=== PATIENT | female | born 1935 | race Caucasian/White ===

== ENCOUNTER 2025-05-16 00:21 | Inpatient (IN) ==
[2025-05-16] MEDS: SODIUM CHLORIDE 0.9% 1,000 ML IV SCH ×2 (01:02→11:29)
--- NOTE | 2025-05-16 01:02 | Emergency Department Note ---
Impression & Plan Pulmonary embolism Admission ED Provider Note HPI: History obtained from patient's son at the bedside. The patient is a 89-year-old female with reported history of dementia, presents to the emergency department with her son at the bedside over concern for generalized illness. Patient's son states that they actually just arrived back [place] this country from [facility]. The patient was in a hospital there secondary to illness, she is noted to have chronic wounds to her coccygeal area as well as her right heel. Patient's son states that the patient has been ill for the past several months. He states that he went to [place] to bring her back home because he did not think that she was getting appropriate care. He states they just [facility] and he was advised prior to bringing his mother back to this country that she would need to go immediately to a hospital upon their arrival back to the [facility]. He does state that the patient is DNR/DNI CODE STATUS. On arrival here to the ED the patient is nonverbal, he states that this is her baseline. At times she will say single words but she is not currently speaking. Patient is tachycardic on arrival in the 140s, blood pressures in the 70s systolic. Patient is saturating well on room air on arrival. ROS: - Per HPI Differential Diagnosis: Sepsis, pneumonia, pulmonary embolism, urinary tract infection, necrotizing infection of the soft tissue surrounding the sacrum, abscess, amongst other potential pathologies. *Outpatient medications and allergy history reviewed. PE: General: Frail appearing, listless HEENT: Normocephalic, trachea midline Eyes: Extraocular eye movement is intact, no scleral erythema Pulmonary: Clear to auscultation bilaterally, no wheezing Cardio: Tachycardic rate with regular rhythm GI: Abdomen is soft to palpation : No suprapubic tenderness MSK: No evidence of trauma or malformation of the extremities, no edema Skin: Ulceration is noted to the right heel, there is a large sacral ulcer with exposed portion of the sacrum posteriorly, no purulent drainage, left hip ulceration also noted without purulent drainage no evidence of rash Neuro: Patient is aphasic, nonambulatory at baseline Psychiatric: Not applicable INDEPENDENT INTERPRETATIONS: thermal molder: (As interpreted by myself): - An order was placed for continuous cardiac monitoring - Patient was noted to be in sinus rhythm with a rate of 135 EKG: (As interpreted by myself): Rate: 144 Rhythm: Sinus tachycardia Intervals: Within normal limits ST changes: No ST elevation Time: 43 Chest x-ray: (As interpreted by myself): No focal infiltrate Interventions provided in ED: - IV fluid bolus, IV vancomycin, IV cefepime, IV heparin bolus and drip Medical Decision Making: IV was established and lab work obtained, patient was placed on manager cardiac. Lab work shows no leukocytosis, hemoglobin is normal, platelet count is 630, CMP does not show any evidence of any critical findings, potassium is mildly elevated at 5.2, creatinine is normal, lactic acid is elevated at 3.9, troponin is mildly elevated at 14.6, procalcitonin is low. Urinalysis shows significant pyuria with 4+ bacteria with a turbid appearance. Suspect UTI. Salazar catheter was placed here. CT imaging of the head does not show any evidence of any acute intracranial process. CT imaging of the chest was obtained given the patient's presenting Tachycardia and hypotension, this does show evidence of a right-sided PE. Patient will be placed on a heparin bolus and drip, she was started on broad- spectrum antibiotics of her vital signs concerning for possible sepsis. She has chronic wounds over her sacrum, heel, and left hip. Overall the patient will require admission, she is noted to be DNR/DNI CODE STATUS according to her son. I think she would be a good candidate for palliative consult as well, she is aphasic, very frail, according to her son she has been deteriorating over the past 8 months at a prison facility in [place]. Patient's son expressed an agreement understanding for admission and the above. Blood pressure improved prior to admission to 121/97, heart rate was within normal limits. Patient's case was discussed with the on-call hospitalist, Dr. Almeida, and the patient was placed for admission in improved condition. Consultants/Discussions held with other healthcare providers: - Hospitalist, Dr. Almeida Disposition discussion held by myself with: - Patient's son at the bedside * CRITICAL CARE TIME: ( 49 ) minutes - Stabilization of patient with unstable vital signs on arrival including hypotension in the 70s systolic with tachycardia in the 140s, IV fluid resuscitation, initiation of broad-spectrum antibiotics, initiation of heparin drip for patient with right sided PE and elevated troponin, discussion with other physicians and arrangement of admission. Diagnosis: 1. Right-sided pulmonary embolism, acute 2. History of advanced dementia 3. Aphasia, chronic 4. Sacral ulcer, chronic 5. UTI, acute 6. Hyperkalemia, acute, mild 7. Lactic acidosis, acute Disposition: Admission Raymond Valdez DO Emergency Medicine Past Med/Surg History Problem List (Updated 05/16/25 @ 05:22 by Raymond Valdez DO) Pulmonary embolism (Acute) Severe sepsis Social History Smoking Status: Unknown if ever smoked Results & Data (ED) Vital Signs Vital Signs - 24 hr 05/16/25 00:30 05/16/25 00:50 05/16/25 00:52 Temperature 36.8 C Temperature Source Temporal Artery Scan Pulse Rate 134 H 143 H Pulse Rate [Apical] 140 H Pulse Rate from SpO2 Sensor Respiratory Rate Blood Pressure Blood Pressure Mean Pulse Oximetry 95 Oxygen Delivery Method Room Air Sepsis Recent Fever Within 48 Hours No Sepsis New/Unexplained Change in Mental Status No Sepsis Action Taken by Nursing No Action Required 05/16/25 00:54 05/16/25 00:54 05/16/25 00:54 Temperature Temperature Source Pulse Rate Pulse Rate [Apical] Pulse Rate from SpO2 Sensor Respiratory Rate Blood Pressure 79/59 L 79/59 L 79/59 L Blood Pressure Mean 66 66 66 Pulse Oximetry Oxygen Delivery Method Sepsis Recent Fever Within 48 Hours Sepsis New/Unexplained Change in Mental Status Sepsis Action Taken by Nursing 05/16/25 00:54 05/16/25 00:57 05/16/25 00:58 Temperature Temperature Source Pulse Rate 130 H 140 H Pulse Rate [Apical] Pulse Rate from SpO2 Sensor 138 H Respiratory Rate 17 26 H Blood Pressure 99/71 L Blood Pressure Mean 76 Pulse Oximetry 95 Oxygen Delivery Method Sepsis Recent Fever Within 48 Hours Sepsis New/Unexplained Change in Mental Status Sepsis Action Taken by Nursing 05/16/25 01:03 05/16/25 01:04 05/16/25 01:10 Temperature Temperature Source Pulse Rate 138 H Pulse Rate [Apical] Pulse Rate from SpO2 Sensor Respiratory Rate 26 H Blood Pressure 99/71 L Blood Pressure Mean 78 Pulse Oximetry 98 Oxygen Delivery Method Room Air Sepsis Recent Fever Within 48 Hours Sepsis New/Unexplained Change in Mental Status Sepsis Action Taken by Nursing 05/16/25 01:10 05/16/25 01:26 05/16/25 01:26 Temperature Temperature Source Pulse Rate Pulse Rate [Apical] Pulse Rate from SpO2 Sensor Respiratory Rate Blood Pressure 99/71 L 92/66 L 92/66 L Blood Pressure Mean 78 75 75 Pulse Oximetry Oxygen Delivery Method Sepsis Recent Fever Within 48 Hours Sepsis New/Unexplained Change in Mental Status Sepsis Action Taken by Nursing 05/16/25 01:27 05/16/25 01:30 05/16/25 01:30 Temperature Temperature Source Pulse Rate 112 H Pulse Rate [Apical] Pulse Rate from SpO2 Sensor 114 H Respiratory Rate 21 Blood Pressure 97/53 L 97/53 L Blood Pressure Mean 59 59 Pulse Oximetry 91 Oxygen Delivery Method Sepsis Recent Fever Within 48 Hours Sepsis New/Unexplained Change in Mental Status Sepsis Action Taken by Nursing 05/16/25 01:30 05/16/25 01:30 05/16/25 01:33 Temperature Temperature Source Pulse Rate 118 H Pulse Rate [Apical] Pulse Rate from SpO2 Sensor 123 H Respiratory Rate 20 Blood Pressure 97/53 L 97/53 L Blood Pressure Mean 59 59 Pulse Oximetry 91 Oxygen Delivery Method Sepsis Recent Fever Within 48 Hours Sepsis New/Unexplained Change in Mental Status Sepsis Action Taken by Nursing 05/16/25 01:45 05/16/25 01:50 05/16/25 02:00 Temperature Temperature Source Pulse Rate 110 H Pulse Rate [Apical] Pulse Rate from SpO2 Sensor 108 H Respiratory Rate 21 Blood Pressure 104/61 97/55 L Blood Pressure Mean 81 66 Pulse Oximetry 92 Oxygen Delivery Method Sepsis Recent Fever Within 48 Hours Sepsis New/Unexplained Change in Mental Status Sepsis Action Taken by Nursing 05/16/25 02:09 05/16/25 02:20 05/16/25 02:20 Temperature Temperature Source Pulse Rate 104 H Pulse Rate [Apical] Pulse Rate from SpO2 Sensor Respiratory Rate 16 Blood Pressure 108/75 108/75 Blood Pressure Mean 85 85 Pulse Oximetry Oxygen Delivery Method Sepsis Recent Fever Within 48 Hours Sepsis New/Unexplained Change in Mental Status Sepsis Action Taken by Nursing 05/16/25 02:21 05/16/25 02:30 05/16/25 02:30 Temperature 37.0 C Temperature Source Pulse Rate 98 H Pulse Rate [Apical] Pulse Rate from SpO2 Sensor Respiratory Rate 20 Blood Pressure 112/64 112/64 Blood Pressure Mean 71 71 Pulse Oximetry Oxygen Delivery Method Sepsis Recent Fever Within 48 Hours Sepsis New/Unexplained Change in Mental Status Sepsis Action Taken by Nursing 05/16/25 02:30 05/16/25 02:30 05/16/25 02:30 Temperature 36.9 C Temperature Source Pulse Rate 98 H Pulse Rate [Apical] Pulse Rate from SpO2 Sensor Respiratory Rate 24 Blood Pressure 112/64 112/64 Blood Pressure Mean 71 71 Pulse Oximetry Oxygen Delivery Method Sepsis Recent Fever Within 48 Hours Sepsis New/Unexplained Change in Mental Status Sepsis Action Taken by Nursing 05/16/25 02:33 05/16/25 02:40 05/16/25 03:00 Temperature 37.0 C Temperature Source Pulse Rate 96 H Pulse Rate [Apical] Pulse Rate from SpO2 Sensor Respiratory Rate 22 Blood Pressure 121/75 125/79 Blood Pressure Mean 81 101 Pulse Oximetry Oxygen Delivery Method Sepsis Recent Fever Within 48 Hours Sepsis New/Unexplained Change in Mental Status Sepsis Action Taken by Nursing 05/16/25 03:00 05/16/25 03:00 05/16/25 03:03 Temperature 37.0 C Temperature Source Pulse Rate 108 H Pulse Rate [Apical] Pulse Rate from SpO2 Sensor 94 H Respiratory Rate 21 Blood Pressure 125/79 125/79 Blood Pressure Mean 101 101 Pulse Oximetry 94 Oxygen Delivery Method Sepsis Recent Fever Within 48 Hours Sepsis New/Unexplained Change in Mental Status Sepsis Action Taken by Nursing 05/16/25 03:15 05/16/25 03:27 05/16/25 03:30 Temperature 37.1 C 37.1 C Temperature Source Pulse Rate 100 H 105 H Pulse Rate [Apical] Pulse Rate from SpO2 Sensor 101 H 103 H Respiratory Rate 20 16 Blood Pressure 131/89 Blood Pressure Mean 118 Pulse Oximetry 95 96 Oxygen Delivery Method Sepsis Recent Fever Within 48 Hours Sepsis New/Unexplained Change in Mental Status Sepsis Action Taken by Nursing 05/16/25 03:30 05/16/25 03:40 05/16/25 03:50 Temperature Temperature Source Pulse Rate Pulse Rate [Apical] Pulse Rate from SpO2 Sensor Respiratory Rate Blood Pressure 131/89 125/52 L 121/97 Blood Pressure Mean 118 72 108 Pulse Oximetry Oxygen Delivery Method Sepsis Recent Fever Within 48 Hours Sepsis New/Unexplained Change in Mental Status Sepsis Action Taken by Nursing 05/16/25 03:57 05/16/25 04:00 05/16/25 04:00 Temperature 37.0 C Temperature Source Pulse Rate 106 H Pulse Rate [Apical] Pulse Rate from SpO2 Sensor 105 H Respiratory Rate 30 H Blood Pressure Blood Pressure Mean Pulse Oximetry 95 Oxygen Delivery Method Room Air Room Air Sepsis Recent Fever Within 48 Hours Sepsis New/Unexplained Change in Mental Status Sepsis Action Taken by Nursing 05/16/25 04:52 Temperature Temperature Source Pulse Rate 98 H Pulse Rate [Apical] Pulse Rate from SpO2 Sensor Respiratory Rate Blood Pressure Blood Pressure Mean Pulse Oximetry Oxygen Delivery Method Sepsis Recent Fever Within 48 Hours Sepsis New/Unexplained Change in Mental Status Sepsis Action Taken by Nursing Laboratory Data 05/16/25 00:59 05/16/25 00:59 Lab Results 05/16/25 05/16/25 05/16/25 Range/Units 00:58 00:59 01:09 WBC 10.60 (4.8-10.8) K/ul RBC 4.68 (4.20-5.40) M/uL Hgb 12.0 (12.0-16.0) g/dl POC Hgb 13.6 (12.0-16.0) g/dl Hct 38.1 (37.0-47.0) % POC Hct 40 (37-47) % MCV 81.4 (80.0-100.0) fL MCH 25.6 (25.0-34.0) pg MCHC 31.5 L (32.0-36.0) g/dL RDW Std Deviation 53.5 H (36.4-46.3) fL RDW Coeff of Ollie 18.8 H (11.5-14.5) % Plt Count 630 H (130-400) K/uL MPV 9.4 (9.4-12.4) fL Immature Gran % (Auto) 0.6 % Neut % (Auto) 85.5 % Lymph % (Auto) 6.5 % Hamilton % (Auto) 7.0 % Eos % (Auto) 0.0 % Baso % (Auto) 0.4 % Neut # (Auto) 9.07 H (1.40-6.50) K/uL Lymph # (Auto) 0.69 L (1.20-3.40) K/uL Hamilton # (Auto) 0.74 H (0.11-0.59) K/uL Eos # (Auto) 0.00 (0.00-0.50) K/uL Baso # (Auto) 0.04 (0.00-0.20) K/uL Immature Gran # (Auto) 0.06 (0.01-0.20) K/uL PT 12.4 H (9.0-12.0) Seconds INR 1.2 H (0.9-1.1) POC Sodium 134 L (135-144) mmol/L Sodium 135 L (136-145) mmol/L POC Potassium 5.3 H (3.3-5.0) mmol/L Potassium 5.2 H (3.5-5.1) mmol/L POC Chloride 103 (101-112) mmol/L Chloride 100 (98-107) mmol/L Carbon Dioxide 22 (21-32) mmol/L POC Total CO2 20 L (24-31) mmol/L Anion Gap 13 H (3-11) POC Anion Gap 17.0 (16-25) mmol/L POC BUN 9 (7-18) mg/dl BUN 11 (6-23) mg/dl Creatinine 0.99 (0.6-1.2) mg/dl POC Creatinine 1.2 (0.6-1.3) mg/dl Est Cr Clr Drug Dosing 35.1 ml/min eGFR 54.84 BUN/Creatinine Ratio 11.1 (10-20) Glucose 160 H (70-99(Fasting)) mg/dl POC Glucose (other) 165 H (70-99) mg/dl Lactate 3.9 H* (0.4-2.0) mmol/L Calcium 8.6 (8.6-10.3) mg/dl POC Ioniz Calcium Devan 1.06 L (1.12-1.32) mmol/l Magnesium 1.9 (1.7-2.4) mg/dl Total Bilirubin 0.4 (0.2-1.0) mg/dl Direct Bilirubin 0.1 (0-0.2) mg/dl AST 22 (13-39) U/L ALT 14 (7-52) U/L Alkaline Phosphatase 138 H (34-104) U/L Troponin I High Sens 14.6 H (0-14) pg/ml Total Protein 6.8 (6.0-8.3) gm/dl Albumin 2.4 L (3.4-5.0) gm/dl Procalcitonin 0.16 (0-0.5) ng/ml Urine Color Urine Appearance (Clear) Urine pH Ur Specific [place] (1.000-1.030) Urine Protein Urine Glucose (UA) Urine Ketones Urine Blood Urine Nitrite Urine Bilirubin Urine Urobilinogen Ur Leukocyte Esterase Urine RBC (0-2) /hpf Urine WBC (0-5) /hpf Ur Epithelial Cells (0-2) /hpf Urine Bacteria (None Seen) Urine Comment 05/16/25 05/16/25 Range/Units 02:20 02:58 WBC (4.8-10.8) K/ul RBC (4.20-5.40) M/uL Hgb (12.0-16.0) g/dl POC Hgb (12.0-16.0) g/dl Hct (37.0-47.0) % POC Hct (37-47) % MCV (80.0-100.0) fL MCH (25.0-34.0) pg MCHC (32.0-36.0) g/dL RDW Std Deviation (36.4-46.3) fL RDW Coeff of Ollie (11.5-14.5) % Plt Count (130-400) K/uL MPV (9.4-12.4) fL Immature Gran % (Auto) % Neut % (Auto) % Lymph % (Auto) % Hamilton % (Auto) % Eos % (Auto) % Baso % (Auto) % Neut # (Auto) (1.40-6.50) K/uL Lymph # (Auto) (1.20-3.40) K/uL Hamilton # (Auto) (0.11-0.59) K/uL Eos # (Auto) (0.00-0.50) K/uL Baso # (Auto) (0.00-0.20) K/uL Immature Gran # (Auto) (0.01-0.20) K/uL PT (9.0-12.0) Seconds INR (0.9-1.1) POC Sodium (135-144) mmol/L Sodium (136-145) mmol/L POC Potassium (3.3-5.0) mmol/L Potassium (3.5-5.1) mmol/L POC Chloride (101-112) mmol/L Chloride (98-107) mmol/L Carbon Dioxide (21-32) mmol/L POC Total CO2 (24-31) mmol/L Anion Gap (3-11) POC Anion Gap (16-25) mmol/L POC BUN (7-18) mg/dl BUN (6-23) mg/dl Creatinine (0.6-1.2) mg/dl POC Creatinine (0.6-1.3) mg/dl Est Cr Clr Drug Dosing ml/min eGFR BUN/Creatinine Ratio (10-20) Glucose (70-99(Fasting)) mg/dl POC Glucose (other) (70-99) mg/dl Lactate 2.6 H* (0.4-2.0) mmol/L Calcium (8.6-10.3) mg/dl POC Ioniz Calcium Devan (1.12-1.32) mmol/l Magnesium (1.7-2.4) mg/dl Total Bilirubin (0.2-1.0) mg/dl Direct Bilirubin (0-0.2) mg/dl AST (13-39) U/L ALT (7-52) U/L Alkaline Phosphatase (34-104) U/L Troponin I High Sens (0-14) pg/ml Total Protein (6.0-8.3) gm/dl Albumin (3.4-5.0) gm/dl Procalcitonin (0-0.5) ng/ml Urine Color See Comment Urine Appearance Turbid A (Clear) Urine pH Not Reportable Ur Specific [place] 1.019 (1.000-1.030) Urine Protein Not Reportable Urine Glucose (UA) Not Reportable Urine Ketones Not Reportable Urine Blood Not Reportable Urine Nitrite Not Reportable Urine Bilirubin Not Reportable Urine Urobilinogen Not Reportable Ur Leukocyte Esterase Not Reportable Urine RBC 11-20 H (0-2) /hpf Urine WBC >50 H (0-5) /hpf Ur Epithelial Cells 6-10 H (0-2) /hpf Urine Bacteria 4+ H (None Seen) Urine Comment Administered Medications Heparin Sodium/Dextrose (Heparin 27132 Unit/500 Ml D5w) 25,000 units in 500 mls @ 20 mls/hr IV .Q24H [facility]; Protocol Stop: 06/15/25 02:59 Last Admin: 05/16/25 03:22 Dose: 1,000 units/hr, 20 mls/hr Documented By: MILI Co-signed By: TJBeverley Discontinued Medications Heparin Sodium (Porcine) (Heparin Sod (Porcine) 1000 Unit/Ml) 1 units IV NOW ONE Stop: 05/16/25 03:01 Last Admin: 05/16/25 03:22 Dose: 5,000 units Documented By: MILI Co-signed By: GOMEZ Sodium Chloride (Nss) 1,000 mls @ 999 mls/hr IV .Q1H1M ANALILIA Stop: 05/16/25 03:00 Last Admin: 05/16/25 03:06 Dose: 999 mls/hr Documented By: Infusion: 05/16/25 02:52 Dose: Infused Documented By: Admin: 05/16/25 01:02 Dose: 999 mls/hr Documented By: REGAN Cefepime HCl (Maxipime 2000mg) 2,000 mg in 20 mls @ 5 mls/min IV NOW STA; Protocol Stop: 05/16/25 01:03 Last Admin: 05/16/25 01:03 Dose: 5 mls/min Documented By: REGAN Vancomycin HCl 1,250 mg/ (Sodium Chloride) 525 mls @ 200 mls/hr IV NOW ONE Stop: 05/16/25 04:58 Last Admin: 05/16/25 03:51 Dose: 200 mls/hr Documented By: GOMEZ Ioversol (Optiray 320 125ml) 118 ml IV ONCE ONE Stop: 05/16/25 01:19 Last Admin: 05/16/25 01:18 Dose: 118 ml Documented By: BOOGIE Miscellaneous Information (Patient's Allergy Info Needs Entered) 1 each N/A ONE STA Stop: 05/16/25 02:59 Last Admin: 05/16/25 03:51 Dose: Not Given Documented By: GOMEZ Imaging Data Radiologist's Impression: Chest X-Ray 05/16/25 00:59 EXAM: XR chest 1V portable CLINICAL HISTORY: Sepsis TECHNIQUE: An X-ray image of the chest was obtained in the AP projection. COMPARISON: CT angiography of the chest, dated 05/16/2025. FINDINGS: The patient is rotated. Pulmonary Parenchyma: Bilateral reticular shadowing is suggestive of fibrosis. Atelectatic bands are noted in the right middle and lower lung zones. The lungs are clear bilaterally. There is no evidence of consolidation, collapse, or focal opacities. No pulmonary nodules are identified. There is blunting of the right costophrenic angle, which is suggestive of mild pleural effusion. Heart and Mediastinum: The heart size and shape are normal. There is a dilated and unfolded aorta. There is an elevated right hemidiaphragm. Bony Thorax: Degenerative changes are present in the glenohumeral joints. Decreased bone density is noted. Soft Tissues: The soft tissues overlying the chest wall are unremarkable. IMPRESSION: 1. Bilateral reticular shadowing is suggestive of fibrosis, and is stable. 2. Atelectatic bands in the right middle and lower lung zones are stable. 3. Blunting of the right costophrenic angle is suggestive of mild pleural effusion, and is stable. 4. There are no significant interval changes from the previous study. Electronically signed by John Nesbitt 05-16-2025 03:23 AM Chest CTA 05/16/25 01:02 EXAM: CT angio chest PE protocol CLINICAL HISTORY: PE TECHNIQUE: Contiguous axial images were obtained from the neck base through the upper abdomen following intravenous administration of iodinated contrast material. Angiographic images were processed, 3D MIP images were acquired for interpretation. If IV contrast material had not been administered, the likelihood of detecting abnormalities relevant to the patient's condition would have been substantially decreased. Coronal and sagittal 3-D MIPs were likewise performed and indicated to increase the sensitivity of detectin diffuse clinically relevant pathology. CT scan was performed according to ALARA (as low as reasonably achievable). COMPARISON: None. FINDINGS: Mild right pleural effusion with basal subsegmental collapse of right lower lobes are seen. Evidence of intraluminal hypodense filling defect is noted involving right upper lobar artery and right middle lobar artery up to segmental branches- suggestive of pulmonary embolism. Multiple fibroatelectatic bands are noted in both lungs. Ill-defined fibrotic scar is noted involving anterior segment of left upper lobe. The central airways are patent. The heart, aorta, and pulmonary arteries are of normal size and configuration. There are coronary artery and aortic atherosclerotic calcifications. No pericardial effusion is identified. The thyroid shows multiple tiny nodules-advised ultrasound correlation. No mediastinal, hilar, or axillary lymphadenopathy is noted. No suspicious lytic or sclerotic osseous lesions are identified. IMPRESSION: 1. Evidence of intraluminal hypodense filling defect is noted involving right upper lobar artery and right middle lobar artery up to segmental branches- suggestive of pulmonary embolism. 2. Mild right pleural effusion with basal subsegmental collapse of right lower lobes are seen. 3. Multiple fibroatelectatic bands are noted in both lungs. 4. Ill-defined fibrotic scar is noted involving anterior segment of left upper lobe. Electronically signed by Kailash Lopez 05-16-2025 02:[address] 05/16/25 01:02 EXAM: CT head/brain wo con CLINICAL HISTORY: AMS. TECHNIQUE: Axial non-contrast CT scan of the brain was performed from the skull base to the high parietal region. One of the following dose reduction techniques was utilized for this exam: Automated exposure control, adjustment of the mA and/or kV according to patient size, use of iterative reconstruction. COMPARISON: None. FINDINGS: Brain Parenchyma: There are ill-defined iso-to hypodense areas in the subcortical and periventricular white matter bilaterally, representing chronic microvascular ischemic changes. The rest of the visualized brain parenchyma shows a normal appearance. No intracerebral or extra axial hematoma. Ventricular System: Prominent ventricular system. Subarachnoid Spaces: The cortical sulci and basal cisterns are prominent, consistent with senile changes. Cerebellum and Brainstem: No masses, lesions, or areas of abnormal density. Orbits: Normal appearance of the globes, optic nerves, and extraocular muscles. No evidence of orbital masses or abnormal density. Visualised Paranasal sinuses: Clear paranasal sinuses. Right-sided nasal septal deviation. Mastoid Air Cells: Clear mastoid air cells. Skull and soft tissue: Hyperpneumatization of bilateral temporal bones noted. IMPRESSION: 1. No acute abnormality detected in plain CT head. 2. Chronic microvascular ischemic changes and senile cortical atrophy. Electronically signed by John Nesbitt 05-16-2025 02:38 AM Discharge Plan Visit Data Chief Complaint: Infection, Wound Stated Complaint: SCAR? INFECTION? ED Provider: Raymond Valdez Discharge Problem: Pulmonary embolism Patient Disposition: Admitted As Inpatient Condition: Serious Forms Stand Alone Forms: [facility] Referrals Referrals: PCP,NO [Primary Care Provider] -
[2025-05-16] MEDS: CEFEPIME 2000MG 2,000 MG/20 ML SYR IV STA (01:03)
[2025-05-16] MEDS: OPTIRAY 320 125ml IV ONE (01:18)
[2025-05-16 01:23] LABS: Hematocrit (blood only) 38.1 % (37.0-47.0); Hemoglobin 12.0 g/dl (12.0-16.0); Immature Granulocytes # (auto) 0.06 K/uL (0.01-0.20); Immature Granulocytes % (auto) 0.6 %; Mean Corpuscular Hemoglobin 25.6 pg (25.0-34.0); Mean Corpuscular Volume 81.4 fL (80.0-100.0); Platelet Count 630 K/uL (130-400); RDW Standard Deviation 53.5 fL (36.4-46.3); Red Blood Count 4.68 M/uL (4.20-5.40); White Blood Count 10.60 K/ul (4.8-10.8)
[2025-05-16 01:40] LABS: Alanine Aminotransferase 14.0 U/L (7-52); Albumin Level 2.4 gm/dl (3.4-5.0); Alkaline Phosphatase 138.0 U/L (34-104); Anion Gap 13.0 (3-11); Bilirubin,Total 0.4 mg/dl (0.2-1.0); Blood Urea Nitrogen 11.0 mg/dl (6-23); Calcium 8.6 mg/dl (8.6-10.3); Carbon Dioxide 22.0 mmol/L (21-32); Chloride 100.0 mmol/L (98-107); Creatinine Clr Calc Pharmacy 35.1 ml/min; Glucose 160.0 mg/dl (70-99(Fasting)); Magnesium 1.9 mg/dl (1.7-2.4); Potassium 5.2 mmol/L (3.5-5.1); Sodium 135.0 mmol/L (136-145); Total Protein 6.8 gm/dl (6.0-8.3)
[2025-05-16 01:58] LABS: INR 1.2 (0.9-1.1); Prothrombin Time 12.4 Seconds (9.0-12.0)
[2025-05-16] MEDS ORDERED: VANCOMYCIN CONSULT ACTIVE PRN (02:21)
--- NOTE | 2025-05-16 02:38 | CT Scan Report ---
EXAM: CT head/brain wo con CLINICAL HISTORY: AMS. TECHNIQUE: Axial non-contrast CT scan of the brain was performed from the skull base to the high parietal region. One of the following dose reduction techniques was utilized for this exam: Automated exposure control, adjustment of the mA and/or kV according to patient size, use of iterative reconstruction. COMPARISON: None. FINDINGS: Brain Parenchyma: There are ill-defined iso-to hypodense areas in the subcortical and periventricular white matter bilaterally, representing chronic microvascular ischemic changes. The rest of the visualized brain parenchyma shows a normal appearance. No intracerebral or extra axial hematoma. Ventricular System: Prominent ventricular system. Subarachnoid Spaces: The cortical sulci and basal cisterns are prominent, consistent with senile changes. Cerebellum and Brainstem: No masses, lesions, or areas of abnormal density. Orbits: Normal appearance of the globes, optic nerves, and extraocular muscles. No evidence of orbital masses or abnormal density. Visualised Paranasal sinuses: Clear paranasal sinuses. Right-sided nasal septal deviation. Mastoid Air Cells: Clear mastoid air cells. Skull and soft tissue: Hyperpneumatization of bilateral temporal bones noted. IMPRESSION: 1. No acute abnormality detected in plain CT head. 2. Chronic microvascular ischemic changes and senile cortical atrophy. Electronically signed by John Nesbitt 05-16-2025 02:38 AM
--- NOTE | 2025-05-16 02:38 | CT Scan Report ---
EXAM: CT angio chest PE protocol CLINICAL HISTORY: PE TECHNIQUE: Contiguous axial images were obtained from the neck base through the upper abdomen following intravenous administration of iodinated contrast material. Angiographic images were processed, 3D MIP images were acquired for interpretation. If IV contrast material had not been administered, the likelihood of detecting abnormalities relevant to the patient's condition would have been substantially decreased. Coronal and sagittal 3-D MIPs were likewise performed and indicated to increase the sensitivity of detectin diffuse clinically relevant pathology. CT scan was performed according to ALARA (as low as reasonably achievable). COMPARISON: None. FINDINGS: Mild right pleural effusion with basal subsegmental collapse of right lower lobes are seen. Evidence of intraluminal hypodense filling defect is noted involving right upper lobar artery and right middle lobar artery up to segmental branches- suggestive of pulmonary embolism. Multiple fibroatelectatic bands are noted in both lungs. Ill-defined fibrotic scar is noted involving anterior segment of left upper lobe. The central airways are patent. The heart, aorta, and pulmonary arteries are of normal size and configuration. There are coronary artery and aortic atherosclerotic calcifications. No pericardial effusion is identified. The thyroid shows multiple tiny nodules-advised ultrasound correlation. No mediastinal, hilar, or axillary lymphadenopathy is noted. No suspicious lytic or sclerotic osseous lesions are identified. IMPRESSION: 1. Evidence of intraluminal hypodense filling defect is noted involving right upper lobar artery and right middle lobar artery up to segmental branches- suggestive of pulmonary embolism. 2. Mild right pleural effusion with basal subsegmental collapse of right lower lobes are seen. 3. Multiple fibroatelectatic bands are noted in both lungs. 4. Ill-defined fibrotic scar is noted involving anterior segment of left upper lobe. Electronically signed by Kailash Lopez 05-16-2025 02:38 AM
[2025-05-16] MEDS ORDERED: Heparin IV Adult Wt-Based Standard w/ INITIAL Bolus Protocol IV STA (02:44)
[2025-05-16 02:58] LABS: Appearance Urine Turbid (Clear)
[2025-05-16] MEDS: HEPARIN SOD (PORCINE) 1000 UNIT/ML IV ONE (03:22)
[2025-05-16] MEDS: HEPARIN 25000 UNIT/500 ML D5W 25,000 UNITS/500 ML BAG IV SCH (03:22)
--- NOTE | 2025-05-16 03:23 | XRay Report ---
EXAM: XR chest 1V portable CLINICAL HISTORY: Sepsis TECHNIQUE: An X-ray image of the chest was obtained in the AP projection. COMPARISON: CT angiography of the chest, dated 05/16/2025. FINDINGS: The patient is rotated. Pulmonary Parenchyma: Bilateral reticular shadowing is suggestive of fibrosis. Atelectatic bands are noted in the right middle and lower lung zones. The lungs are clear bilaterally. There is no evidence of consolidation, collapse, or focal opacities. No pulmonary nodules are identified. There is blunting of the right costophrenic angle, which is suggestive of mild pleural effusion. Heart and Mediastinum: The heart size and shape are normal. There is a dilated and unfolded aorta. There is an elevated right hemidiaphragm. Bony Thorax: Degenerative changes are present in the glenohumeral joints. Decreased bone density is noted. Soft Tissues: The soft tissues overlying the chest wall are unremarkable. IMPRESSION: 1. Bilateral reticular shadowing is suggestive of fibrosis, and is stable. 2. Atelectatic bands in the right middle and lower lung zones are stable. 3. Blunting of the right costophrenic angle is suggestive of mild pleural effusion, and is stable. 4. There are no significant interval changes from the previous study. Electronically signed by John Nesbitt 05-16-2025 03:23 AM
[2025-05-16] MEDS: VANCOMYCIN HCL 1,250 MG in SODIUM CHLORIDE 0.9% 500 ML IV ONE (03:51)
--- NOTE | 2025-05-16 04:11 | History & Physical Report ---
Date of Service May 16, 2025 Assessment & Plan (1) Severe sepsis: Plan: 89-year-old female with past medical history significant for hypertension, hyperlipidemia and no longer on medication, history of dementia and agitation was brought in by son from [facility] today and found to be in severe sepsis. As per son they went to [place] last year to visit but the patient got sick and got admitted to the hospital. She was too weak to bring h er back. From the hospital she went to jail. Seems as per son she was in and out of the hospitals because of the infections. As per son she was treated for wound infections and completed antibiotic course about a week ago. And a week prior to that she completed antibiotic course for UTI. As per son she was on lisinopril 5 mg daily prior to going to the [place] but in [place] she is getting a different medication for her blood pressure. And also she was getting medication for dementia and she was getting medication for agitation to help her calm down and sleep in the night. Patient developed deep ulcers in the right ankle, left thigh and sacral region and son found out about this deep wounds about a week ago and then he decided to bring her back to the [facility]. He was told to take the patient to hospital as soon they come back to [facility]. When she came here she was tachycardic and hypotensive. With the fluid bolus and antibiotics her vitals improved currently. As per son she can speak few Swedish words. But for last 2 weeks she is not speaking much. Sometimes she remembers her name and sometimes she remembers her son's name. She is nonambulatory. And last couple of weeks she was spoonfed blended diet as per son. As per son no nausea or vomiting. She was having some diarrhea lately. Son thinks patient might be in pain but because of her dementia she is not registering the pain. Currently patient is not talking. Severe sepsis More confused than usual Acute UTI Pressure ulcers CT head okay On presentation heart rate in 140s and systolic blood pressure in 70s With fluids blood pressure improved to 120s and heart rate in the low 100s. Initial lactic acid 3.9 and repeat is 2.6 Got IV Vanco and cefepime Will continue with Vanco and Zosyn Will follow cultures Continue IV fluids at 125 mL/h Close monitor hemodynamics Acute pulmonary embolism CTA chest shows right upper and middle lobar artery pulmonary embolism On IV heparin Mild elevation troponin Mostly demand ischemia Will follow serial enzymes and echo Hyperkalemia Potassium 5.2 Will follow repeat labs in a.m. Pressure ulcers Stage IV sacral, right ankle and left thigh wounds Antibiotics as above Wound care consult Dementia Will monitor for agitation Nutrition Will keep her n.p.o. for now Speech consult Dietitian consult when stable History of hypertension was on lisinopril 5 mg per son Currently in sepsis Will monitor History of hyperlipidemia No longer on statin as per son DVT prophylaxis IV heparin Disposition Telemetry CODE STATUS DNR/DNI as per my discussion with son Son wants patient to be placed History of Present Illness Chief Complaint: Severe sepsis Primary Care Provider: NO PCP 89-year-old female with past medical history significant for hypertension, hyperlipidemia and no longer on medication, history of dementia and agitation was brought in by son from [facility] today and found to be in severe sepsis. As per son they went to [place] last year to visit but the patient got sick and got admitted to the hospital. She was too weak to bring her back. From the hospital she went to jail. Seems as per son she was in and out of the hospitals because of the infections. As per son she was treated for wound infections and completed antibiotic course about a week ago. And a week prior to that she completed antibiotic course for UTI. As per son she was on lisinopril 5 mg daily prior to going to the [place] but in [place] she is getting a different medication for her blood pressure. And also she was getting medication for dementia and she was getting medication for agitation to help her calm down and sleep in the night. Patient developed deep ulcers in the right ankle, left thigh and sacral region and son found out about this deep wounds about a week ago and then he decided to bring her back to the [facility]. He was told to take the patient to hospital as soon they come back to [facility]. When she came here she was tachycardic and hypotensive. With the fluid bolus and antibiotics her vitals improved currently. As per son she can speak few Swedish words. But for last 2 weeks she is not speaking much. Sometimes she remembers her name and sometimes she remembers her son's name. She is nonambulatory. And last couple of weeks she was spoonfed blended diet as per son. As per son no nausea or vomiting. She was having some diarrhea lately. Son thinks patient might be in pain but because of her dementia she is not registering the pain. Currently patient is not talking. Past medical history as mentioned above Past surgical history hysterectomy as per son. Social history. No smoking. No alcohol use. Family history noncontributory Past Med/Surg History Problem List (Updated 05/16/25 @ 05:22 by Raymond Valdez DO) Pulmonary embolism (Acute) Severe sepsis Social History Smoking Status: Unknown if ever smoked Review of Systems Review of Systems: Unobtainable due to cognitive status Physical Exam Physical Exam: General- Not in acute distress. Head- atraumatic Eyes- PERRL. Lungs- clear to auscultation no wheezing or crackles Heart- regular rhythm; Tachycardia no murmur, no gallop. Abdomen- normal bowel sounds, soft, nontender, no distension. Extremities- no pretibial edema, no erythema seen. Neuro- staring, not speaking, PERRL,not obeying commands. Skin- stage 4 ulcers in sacral region , left thigh and right ankle region Results & Data Results & Data Vital Signs (Past 12 Hours) Vital Signs Temp Pulse Pulse Resp BP Pulse Ox O2 Del Method 05/16/25 04:00 Room Air 05/16/25 04:00 Room Air 05/16/25 03:57 37.0 C 106 H 30 H 95 05/16/25 03:50 121/97 05/16/25 03:40 125/52 L 05/16/25 03:30 131/89 05/16/25 03:30 131/89 05/16/25 03:27 37.1 C 105 H 16 96 05/16/25 03:15 37.1 C 100 H 20 95 05/16/25 03:03 37.0 C 108 H 21 94 05/16/25 03:00 125/79 05/16/25 03:00 125/79 05/16/25 03:00 125/79 05/16/25 02:40 121/75 05/16/25 02:33 37.0 C 96 H 22 05/16/25 02:30 36.9 C 98 H 24 05/16/25 02:30 112/64 05/16/25 02:30 112/64 05/16/25 02:30 112/64 05/16/25 02:30 112/64 05/16/25 02:21 37.0 C 98 H 20 05/16/25 02:20 108/75 05/16/25 02:20 108/75 05/16/25 02:09 104 H 16 05/16/25 02:00 97/55 L 05/16/25 01:50 104/61 05/16/25 01:45 110 H 21 92 05/16/25 01:33 118 H 20 91 05/16/25 01:30 97/53 L 05/16/25 01:30 97/53 L 05/16/25 01:30 97/53 L 05/16/25 01:30 97/53 L 05/16/25 01:27 112 H 21 91 05/16/25 01:26 92/66 L 05/16/25 01:26 92/66 L 05/16/25 01:10 99/71 L 05/16/25 01:10 99/71 L 05/16/25 01:04 98 Room Air 05/16/25 01:03 138 H 26 H 05/16/25 00:58 99/71 L 05/16/25 00:57 140 H 26 H 95 05/16/25 00:54 130 H 17 05/16/25 00:54 79/59 L 05/16/25 00:54 79/59 L 05/16/25 00:54 79/59 L 05/16/25 00:52 143 H 05/16/25 00:50 140 H 05/16/25 00:30 36.8 C 134 H 95 Room Air Diagnostic Findings Laboratory Results WBC 10.60 K/ul (4.8-10.8) 05/16/25 00:59 RBC 4.68 M/uL (4.20-5.40) 05/16/25 00:59 Hgb 12.0 g/dl (12.0-16.0) 05/16/25 00:59 POC Hgb 13.6 g/dl (12.0-16.0) 05/16/25 00:58 Hct 38.1 % (37.0-47.0) 05/16/25 00:59 POC Hct 40 % (37-47) 05/16/25 00:58 MCV 81.4 fL (80.0-100.0) 05/16/25 00:59 MCH 25.6 pg (25.0-34.0) 05/16/25 00:59 MCHC 31.5 g/dL (32.0-36.0) L 05/16/25 00:59 RDW Std Deviation 53.5 fL (36.4-46.3) H 05/16/25 00:59 RDW Coeff of Ollie 18.8 % (11.5-14.5) H 05/16/25 00:59 Plt Count 630 K/uL (130-400) H 05/16/25 00:59 MPV 9.4 fL (9.4-12.4) 05/16/25 00:59 Immature Gran % (Auto) 0.6 % 05/16/25 00:59 Neut % (Auto) 85.5 % 05/16/25 00:59 Lymph % (Auto) 6.5 % 05/16/25 00:59 [place] % (Auto) 7.0 % 05/16/25 00:59 Eos % (Auto) 0.0 % 05/16/25 00:59 Baso % (Auto) 0.4 % 05/16/25 00:59 Neut # (Auto) 9.07 K/uL (1.40-6.50) H 05/16/25 00:59 Lymph # (Auto) 0.69 K/uL (1.20-3.40) L 05/16/25 00:59 [place] # (Auto) 0.74 K/uL (0.11-0.59) H 05/16/25 00:59 Eos # (Auto) 0.00 K/uL (0.00-0.50) 05/16/25 00:59 Baso # (Auto) 0.04 K/uL (0.00-0.20) 05/16/25 00:59 Immature Gran # (Auto) 0.06 K/uL (0.01-0.20) 05/16/25 00:59 PT 12.4 Seconds (9.0-12.0) H 05/16/25 00:59 INR 1.2 (0.9-1.1) H 05/16/25 00:59 POC Sodium 134 mmol/L (135-144) L 05/16/25 00:58 Sodium 135 mmol/L (136-145) L 05/16/25 00:59 POC Potassium 5.3 mmol/L (3.3-5.0) H 05/16/25 00:58 Potassium 5.2 mmol/L (3.5-5.1) H 05/16/25 00:59 POC Chloride 103 mmol/L (101-112) 05/16/25 00:58 Chloride 100 mmol/L (98-107) 05/16/25 00:59 Carbon Dioxide 22 mmol/L (21-32) 05/16/25 00:59 POC Total CO2 20 mmol/L (24-31) L 05/16/25 00:58 Anion Gap 13 (3-11) H 05/16/25 00:59 POC Anion Gap 17.0 mmol/L (16-25) 05/16/25 00:58 POC BUN 9 mg/dl (7-18) 05/16/25 00:58 BUN 11 mg/dl (6-23) 05/16/25 00:59 Creatinine 0.99 mg/dl (0.6-1.2) 05/16/25 00:59 POC Creatinine 1.2 mg/dl (0.6-1.3) 05/16/25 00:58 Est Cr Clr Drug Dosing 35.1 ml/min 05/16/25 00:59 eGFR 54.84 05/16/25 00:59 BUN/Creatinine Ratio 11.1 (10-20) 05/16/25 00:59 Glucose 160 mg/dl (70-99(Fasting)) H 05/16/25 00:59 POC Glucose (other) 165 mg/dl (70-99) H 05/16/25 00:58 Lactate 2.6 mmol/L (0.4-2.0) H* 05/16/25 02:58 Calcium 8.6 mg/dl (8.6-10.3) 05/16/25 00:59 POC Ioniz Calcium Devan 1.06 mmol/l (1.12-1.32) L 05/16/25 00:58 Magnesium 1.9 mg/dl (1.7-2.4) 05/16/25 00:59 Total Bilirubin 0.4 mg/dl (0.2-1.0) 05/16/25 00:59 Direct Bilirubin 0.1 mg/dl (0-0.2) 05/16/25 00:59 AST 22 U/L (13-39) 05/16/25 00:59 ALT 14 U/L (7-52) 05/16/25 00:59 Alkaline Phosphatase 138 U/L (34-104) H 05/16/25 00:59 Troponin I High Sens 14.6 pg/ml (0-14) H 05/16/25 00:59 Total Protein 6.8 gm/dl (6.0-8.3) 05/16/25 00:59 Albumin 2.4 gm/dl (3.4-5.0) L 05/16/25 00:59 Procalcitonin 0.16 ng/ml (0-0.5) 05/16/25 00:59 Urine Color See Comment 05/16/25 02:20 Urine Appearance Turbid (Clear) A 05/16/25 02:20 Urine pH Not Reportable 05/16/25 02:20 Ur Specific Walker 1.019 (1.000-1.030) 05/16/25 02:20 Urine Protein Not Reportable 05/16/25 02:20 Urine Glucose (UA) Not Reportable 05/16/25 02:20 Urine Ketones Not Reportable 05/16/25 02:20 Urine Blood Not Reportable 05/16/25 02:20 Urine Nitrite Not Reportable 05/16/25 02:20 Urine Bilirubin Not Reportable 05/16/25 02:20 Urine Urobilinogen Not Reportable 05/16/25 02:20 Ur Leukocyte Esterase Not Reportable 05/16/25 02:20 Urine RBC 11-20 /hpf (0-2) H 05/16/25 02:20 Urine WBC >50 /hpf (0-5) H 05/16/25 02:20 Ur Epithelial Cells 6-10 /hpf (0-2) H 05/16/25 02:20 Urine Bacteria 4+ (None Seen) H 05/16/25 02:20 Urine Comment 05/16/25 02:20 Impressions Chest X-Ray 05/16/25 00:59 EXAM: XR chest 1V portable CLINICAL HISTORY: Sepsis TECHNIQUE: An X-ray image of the chest was obtained in the AP projection. COMPARISON: CT angiography of the chest, dated 05/16/2025. FINDINGS: The patient is rotated. Pulmonary Parenchyma: Bilateral reticular shadowing is suggestive of fibrosis. Atelectatic bands are noted in the right middle and lower lung zones. The lungs are clear bilaterally. There is no evidence of consolidation, collapse, or focal opacities. No pulmonary nodules are identified. There is blunting of the right costophrenic angle, which is suggestive of mild pleural effusion. Heart and Mediastinum: The heart size and shape are normal. There is a dilated and unfolded aorta. There is an elevated right hemidiaphragm. Bony Thorax: Degenerative changes are present in the glenohumeral joints. Decreased bone density is noted. Soft Tissues: The soft tissues overlying the chest wall are unremarkable. IMPRESSION: 1. Bilateral reticular shadowing is suggestive of fibrosis, and is stable. 2. Atelectatic bands in the right middle and lower lung zones are stable. 3. Blunting of the right costophrenic angle is suggestive of mild pleural effusion, and is stable. 4. There are no significant interval changes from the previous study. Electronically signed by John Nesbitt 05-16-2025 03:23 AM Chest CTA 05/16/25 01:02 EXAM: CT angio chest PE protocol CLINICAL HISTORY: PE TECHNIQUE: Contiguous axial images were obtained from the neck base through the upper abdomen following intravenous administration of iodinated contrast material. Angiographic images were processed, 3D MIP images were acquired for interpretation. If IV contrast material had not been administered, the likelihood of detecting abnormalities relevant to the patient's condition would have been substantially decreased. Coronal and sagittal 3-D MIPs were likewise performed and indicated to increase the sensitivity of detectin diffuse clinically relevant pathology. CT scan was performed according to ALARA (as low as reasonably achievable). COMPARISON: None. FINDINGS: Mild right pleural effusion with basal subsegmental collapse of right lower lobes are seen. Evidence of intraluminal hypodense filling defect is noted involving right upper lobar artery and right middle lobar artery up to segmental branches- suggestive of pulmonary embolism. Multiple fibroatelectatic bands are noted in both lungs. Ill-defined fibrotic scar is noted involving anterior segment of left upper lobe. The central airways are patent. The heart, aorta, and pulmonary arteries are of normal size and configuration. There are coronary artery and aortic atherosclerotic calcifications. No pericardial effusion is identified. The thyroid shows multiple tiny nodules-advised ultrasound correlation. No mediastinal, hilar, or axillary lymphadenopathy is noted. No suspicious lytic or sclerotic osseous lesions are identified. IMPRESSION: 1. Evidence of intraluminal hypodense filling defect is noted involving right upper lobar artery and right middle lobar artery up to segmental branches- suggestive of pulmonary embolism. 2. Mild right pleural effusion with basal subsegmental collapse of right lower lobes are seen. 3. Multiple fibroatelectatic bands are noted in both lungs. 4. Ill-defined fibrotic scar is noted involving anterior segment of left upper lobe. Electronically signed by Kailash Lopez 05-16-2025 02:[address] 05/16/25 01:02 EXAM: CT head/brain wo con CLINICAL HISTORY: AMS. TECHNIQUE: Axial non-contrast CT scan of the brain was performed from the skull base to the high parietal region. One of the following dose reduction techniques was utilized for this exam: Automated exposure control, adjustment of the mA and/or kV according to patient size, use of iterative reconstruction. COMPARISON: None. FINDINGS: Brain Parenchyma: There are ill-defined iso-to hypodense areas in the subcortical and periventricular white matter bilaterally, representing chronic microvascular ischemic changes. The rest of the visualized brain parenchyma shows a normal appearance. No intracerebral or extra axial hematoma. Ventricular System: Prominent ventricular system. Subarachnoid Spaces: The cortical sulci and basal cisterns are prominent, consistent with senile changes. Cerebellum and Brainstem: No masses, lesions, or areas of abnormal density. Orbits: Normal appearance of the globes, optic nerves, and extraocular muscles. No evidence of orbital masses or abnormal density. Visualised Paranasal sinuses: Clear paranasal sinuses. Right-sided nasal septal deviation. Mastoid Air Cells: Clear mastoid air cells. Skull and soft tissue: Hyperpneumatization of bilateral temporal bones noted. IMPRESSION: 1. No acute abnormality detected in plain CT head. 2. Chronic microvascular ischemic changes and senile cortical atrophy. Electronically signed by John Nesbitt 05-16-2025 02:38 AM ECG Additional Comments: ECG undetermined rhythm rate 144. Q waves in inferior leads. QTc 436 Code Status & VTE Plan VTE Prophylaxis Plan VTE Prophylaxis will be ordered: Yes
[2025-05-16 05:23] LABS: Chlamydia pneumoniae PCR Not Detected (NotDetected); Coronavirus 229E PCR Not Detected (NotDetected); Coronavirus CoV-2 (COVID19)PCR Not Detected (NotDetected); Coronavirus HKU1 PCR Not Detected (NotDetected); Coronavirus NL63 PCR Not Detected (NotDetected); Coronavirus OC43PCR Not Detected (NotDetected); Human Metapneumovirus PCR Not Detected (NotDetected); Parainfluenza Virus 1 PCR Not Detected (NotDetected); Parainfluenza Virus 2 PCR Not Detected (NotDetected); Parainfluenza Virus 3 PCR Not Detected (NotDetected); Parainfluenza Virus 4 PCR Not Detected (NotDetected); Respiratory Syncytial VirusPCR Not Detected (NotDetected); Rhinovirus/Enterovirus PCR Not Detected (NotDetected)
[2025-05-16 08:16] LABS: Hematocrit (blood only) 30.8 % (37.0-47.0); Hemoglobin 9.5 g/dl (12.0-16.0); Immature Granulocytes # (auto) 0.07 K/uL (0.01-0.20); Immature Granulocytes % (auto) 0.7 %; Mean Corpuscular Hemoglobin 25.7 pg (25.0-34.0); Mean Corpuscular Volume 83.5 fL (80.0-100.0); Platelet Count 440 K/uL (130-400); RDW Standard Deviation 54.4 fL (36.4-46.3); Red Blood Count 3.69 M/uL (4.20-5.40); White Blood Count 10.26 K/ul (4.8-10.8)
[2025-05-16 08:45] LABS: Anion Gap 5.0 (3-11); Blood Urea Nitrogen 9.0 mg/dl (6-23); Calcium 7.1 mg/dl (8.6-10.3); Carbon Dioxide 25.0 mmol/L (21-32); Chloride 108.0 mmol/L (98-107); Creatinine Clr Calc Pharmacy 51.8 ml/min; Glucose 124.0 mg/dl (70-99(Fasting)); Magnesium 1.7 mg/dl (1.7-2.4); Potassium 4.2 mmol/L (3.5-5.1); Sodium 138.0 mmol/L (136-145)
[2025-05-16 08:52] LABS: Thyroid Stimulating Hormone 12.747 uIu/ml (0.300-4.500)
[2025-05-16 09:28] LABS: T4 Free Thyroxine 1.01 ng/dl (0.61-1.60)
--- NOTE | 2025-05-16 10:19 | CT Scan Report ---
CT head/brain wo con CLINICAL HISTORY: unresponsive, worse than prior, on heparin. TECHNIQUE: Multiple axial CT images of the head were obtained without contrast. A dose lowering tech nique was utilized adhering to the principles of ALARA. CT DOSE: 625.8 mGy.cm COMPARISON: 05/16/2025. FINDINGS: Stable mild globus pallidus calcifications, unremarkable in this age group. Stable moderate chronic small vessel ischemic change. No intracranial hemorrhage seen. No mass effect, midline shift , or hydrocephalus. Visualized paranasal sinuses and mastoid air cells are clear. No skull fracture s een. IMPRESSION: No acute findings. ACT 112: Negative or not required by law. The above report was generated using voice recognition software. It may contain grammatical, syntax o r spelling errors. Electronically signed by: Mikey Leslie M.D. 05/16/2025 10:17 AM
[2025-05-16] MEDS: OPTIRAY 320 100ml IV ONE (10:29)
--- NOTE | 2025-05-16 10:49 | CT Scan Report ---
CT ankle LT w con CLINICAL HISTORY: stage IV wound COMPARISON STUDY: None FINDINGS: There is subcutaneous soft tissue stranding and thickening laterally consistent with cellul itis. No soft tissue abscess or hematoma seen. No fracture or dislocation seen at the left ankle. No evidence of osteomyelitis seen. IMPRESSION: No soft tissue abscess or osteomyelitis seen. ACT 112: Negative or not required by law. Electronically signed by: Mikey Leslie M.D. 05/16/2025 10:46 AM
[2025-05-16] MEDS: THIAMINE HCL 500 MG in SODIUM CHLORIDE 0.9% 50 ML IV STA (10:59)
[2025-05-16] MEDS: FOLIC ACID 1 MG in SYRINGE 9.8 ML IV STA (11:00)
[2025-05-16] MEDS: 4.5GM X1 IV STA (11:00)
--- NOTE | 2025-05-16 11:01 | CT Scan Report ---
CT SCAN OF THE PELVIS WITH IV CONTRAST CLINICAL HISTORY: Sacral ulceration. COMPARISON STUDY: No priors TECHNIQUE: CT scan of the pelvis is performed from the pelvic inlet to the proximal femora following the IV administration of 94 cc of Optiray 320. Images are reviewed in the axial, sagittal, and coron al planes. IV contrast was administered without complication. A dose lowering technique was utilized adhering to the principles of ALARA. FINDINGS: The bladder is decompressed around a Salazar catheter and appears thick walled. The bladder contains fo ci of intraluminal gas as well as excreted IV contrast. The uterus is surgically absent. No adnexal l esion is seen. There is trace free fluid in the cul-de-sac. Imaged portions of the small bowel and co marcos show no evidence of obstruction. There is no pelvic sidewall or inguinal lymphadenopathy. The manuela ac arteries are patent noting atherosclerotic plaque and irregularity. There is anasarca of the body wall. There is generalized atrophy of the regional musculature. The skeletal structures are osteopenic. No fracture is identified. Arthritic change is seen in the hi ps. There is degenerative sclerosis of the sacroiliac joints and pubic symphysis. No lytic or blastic lesion is seen. There is a difficult large decubitus ulceration overlying the lower sacrum with associated dermal thi ckening and surrounding inflammation. No underlying bony destruction is seen. Question a fistulous tr act extending from the decubitus ulceration into the right gluteal soft tissues on axial image #106. No organized fluid collection is seen at this site to suggest abscess. There is also a large ulceration overlying the greater trochanter of the left proximal femur with ian mal thickening and inflammation. There is mild erosive change in the greater trochanter deep to this site suggesting osteomyelitis. There is a small pocket of gas and fluid overlying the greater trochan ter at the site seen on axial images #115-149. This measures approximately approximately 6 x 3.5 x 1. 5 cm and may represent a small abscess. IMPRESSION: 1. There is a large sacral decubitus ulceration with surrounding cellulitis. 2. There is no CT evidence of sacral osteomyelitis. 3. Question a fistulous tract extending from the sacral ulceration into the right gluteal soft tissue s. 4. There is also a large decubitus ulceration overlying the greater trochanter of the left proximal f emur with surrounding cellulitis. 5. Erosive change in the greater trochanter of the left proximal femur likely represents osteomyeliti s. 6. There is a pocket of fluid overlying the greater trochanter of the left proximal femur deep to the ulceration as detailed above which likely represents an abscess. 7. There is anasarca of the body wall and a small volume of pelvic ascites. 8. The bladder is decompressed and appears thick walled. Correlate with clinical findings and urinaly sis. ACT 112: Negative or not required by law. Electronically signed by: Jeffrey Mckeon M.D. 05/16/2025 11:00 AM
--- NOTE | 2025-05-16 11:01 | CT Scan Report ---
LEFT FEMUR CT WITH CONTRAST CLINICAL HISTORY: Stage IV wound. COMPARISON STUDY: No previous studies for comparison. TECHNIQUE: Axial images of the left femur obtained following intravenous injection of 94 cc of Optira y 320 IV. Sagittal and coronal reformats were viewed. A dose lowering technique was utilized adhering to the principles of ALARA. FINDINGS: Note is made of a deep wound of the lateral left thigh, at the level of the greater trochan ter. There is an associated subcutaneous rim-enhancing pocket of fluid and gas which measures 3.5 x 2 .4 cm, overlying the greater trochanter. Subcortical lucencies within the greater trochanter of the l eft femur suggest early osteomyelitis. There is no associated fractures. No additional areas of bony erosion within the left femur are present. There is extensive subcutaneous edema within the left thig h. A small amount of interfascial fluid is present. No additional foci of soft tissue gas within the left thigh are present. A Salazar balloon within the bladder is noted. The bladder is collapsed. A sacr al decubitus ulcer is particularly on the pelvis CT which will be reported separately. Incidental not e is made of severe left hip osteoarthritis. There are no suspicious osseous lesions IMPRESSION: Deep wound of the lateral left thigh with associated subcutaneous rim enhancing pocket o f fluid and gas which extends to the greater trochanter of the left femur. Subtle cortical erosion of the greater trochanter suggestive of early acute osteomyelitis. ACT 112: Negative or not required by law. Electronically signed by: Fidencio Sampson M.D. 05/16/2025 10:58 AM
--- NOTE | 2025-05-16 11:15 | Pharmacy Report ---
Pharmacy PK ABX Note - Date of Service May 16, 2025 - Assessment and Plan Assessment 89 year old F receiving vancomycin/zosyn for treatment pressure ulcers/sst/possible UTI. of Pertinent microbiologic data includes: Blood, urine and wound cultures pending. Patient recently returned from [facility], history of dementia. Plan Vancomycin * Loading dose: 1250 mg IV x 1 * Maintenance dose: 1000 mg IV every 18 hours * Regimen is predicted to achieve target AUC/GRANT of 400-600 mg/L.hr * Random level to be ordered if continued >48 hours Pharmacy will continue to follow and will adjust dose/frequency as necessary. Thank you. Pharmacy has transitioned to AUC monitoring for vancomycin. AUC/GRANT is the preferred PK/PD target and is associated with decreased risk of nephrotoxicity compared to traditional trough targets.
--- NOTE | 2025-05-16 12:15 | Communication Note ---
Patient seen and examined at bedside. Minimally responsive in room. Required intense sternal rubbing to wake up. Patient tracks, minimally follows commands. 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 Patient has cachexia and sarcopenia consistent with severe dementia. Severe sepsis 2/[address] imaging ordered by this provider revealing left femoral head osteomyelitis, ortho consulted, appreciate recommendations. Ordered three wound cultures and collected from each wound site, f/u culture results. Podiatry consulted for foot wound. Wound care consulted for stage IV pressure ulcers. Continue vanc/zosyn, start D5LR maintenance fluids at 70cc/hr (weight based). Start thiamine, folic acid, check B12/TSH for reversible dementia causes workup. [employer] consult for cocnern for malnutrition, will hold off on tube feeds at this time to try to reverse underlying conditions. Patient would not be good candidate for tube feeds long given severe aspiration risks, albeit has done well in short term in past. Once out of acute phase will benefit from goals of care discussion as this appears to be end stage dementia. Date of Service: May 16, 2025
[2025-05-16] MEDS: VANCOMYCIN HCL / NSS 1,000 MG/270 ML BAG IV SCH (12:49)
--- NOTE | 2025-05-16 12:49 | Orthopedic Consultation ---
Date of Service May 16, 2025 Assessment & Plan (1) Severe sepsis: * Patient see with and case/imaging reviewed and discussed with Dr Jay * Recommend Wound care with wound nurse and a boot to help eliminate pressure on right heel due to contracture and posturing. * Disposition: TBD * Daily treatment: Physical Therapy/ Occupational Therapy per protocol * Weight bearing status: as tolerated * Pain control * Remainder care per primary team * No surgical treatment necessary at this time. Continue with wound care for management of ulcers. Antibiotics per protocol for sepsis. 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 Requesting Physician: . Attending Physician: Akhil Cordero MD . Patient is a 89 y/o female with left hip, sacral and right heel ulcerations. PMH including hypertension, hyperlipidemia and no longer on medication, history of dementia and agitation was brought in by son from [facility] today and found to be in severe sepsis. Presents to hospital with sepsis, right heel, left hip and sacral ulcerations. Current workup including labs, CT of pelvis, left femur. Orthopedics consulted for management recommendations. At time of exam patient's son was presents and provided a history of patient being admitted to a hospital in [facility]. He felt her care there was not adequate and flew her here last evening and brought her straight to the hospital. He states she is non-verbal at baseline and her right leg has been contracted since prolonged stay in hospital prior to this. 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 Physical Exam * General: Alert and oriented, no acute distress * Constitutional: well-developed, well-nourished. * Respiratory: Normal respiratory effort, no distress * Gastrointestinal: No tenderness to palpation, no rigidity or guarding. * Skin: No rash or lesion. * Neurologic: Grossly normal * Musculoskeletal: Right heel ulcer without surrounding erythema, serous drainage on pressure bandage. Wound involved the majority of the posterior heel surface. Left hip with large decubitus ulceration down to level of muscle. Wound is clean without erythema. Sacral ulcer is also without erythema. Results & Data Results & Data Laboratory Results Laboratory Results - last 24 hr 05/16/25 05/16/25 05/16/25 00:58 00:59 01:09 WBC 10.60 RBC 4.68 Hgb 12.0 POC Hgb 13.6 Hct 38.1 POC Hct 40 MCV 81.4 MCH 25.6 MCHC 31.5 L RDW Std Deviation 53.5 H RDW Coeff of Ollie 18.8 H Plt Count 630 H MPV 9.4 Immature Gran % (Auto) 0.6 Neut % (Auto) 85.5 Lymph % (Auto) 6.5 [place] % (Auto) 7.0 Eos % (Auto) 0.0 Baso % (Auto) 0.4 Neut # (Auto) 9.07 H Lymph # (Auto) 0.69 L [place] # (Auto) 0.74 H Eos # (Auto) 0.00 Baso # (Auto) 0.04 Immature Gran # (Auto) 0.06 PT 12.4 H INR 1.2 H POC Sodium 134 L Sodium 135 L POC Potassium 5.3 H Potassium 5.2 H POC Chloride 103 Chloride 100 Carbon Dioxide 22 POC Total CO2 20 L Anion Gap 13 H POC Anion Gap 17.0 POC BUN 9 BUN 11 Creatinine 0.99 POC Creatinine 1.2 Est Cr Clr Drug Dosing 35.1 eGFR 54.84 BUN/Creatinine Ratio 11.1 Glucose 160 H POC Glucose (other) 165 H Lactate 3.9 H* Calcium 8.6 POC Ioniz Calcium Devan 1.06 L Phosphorus Magnesium 1.9 Total Bilirubin 0.4 Direct Bilirubin 0.1 AST 22 ALT 14 Alkaline Phosphatase 138 H Troponin I High Sens 14.6 H Total Protein 6.8 Albumin 2.4 L Vitamin B12 Procalcitonin 0.16 TSH Free T4 Urine Color Urine Appearance Urine pH Ur Specific [place] Urine Protein Urine Glucose (UA) Urine Ketones Urine Blood Urine Nitrite Urine Bilirubin Urine Urobilinogen Ur Leukocyte Esterase Urine RBC Urine WBC Ur Epithelial Cells Urine Bacteria Urine Comment Adenovirus (PCR) B. pertussis DNA (PCR) B.parapertussis DNA PCR C. pneumoniae DNA (PCR) Coronavirus OC43 (PCR) Coronavirus HKU1 (PCR) Coronavirus 229E (PCR) SARS-CoV-2 (PCR) Coronavirus NL63 (PCR) Human Metapneumovir PCR Influenza Type A (PCR) Influenza Type B (PCR) M. pneumoniae (PCR) Parainfluenza 1 (PCR) Parainfluenza 2 (PCR) Parainfluenza 3 (PCR) Parainfluenza 4 (PCR) RSV (PCR) Entero/Rhino (PCR) 05/16/25 05/16/25 05/16/25 02:20 02:58 04:20 WBC RBC Hgb POC Hgb Hct POC Hct MCV MCH MCHC RDW Std Deviation RDW Coeff of Ollie Plt Count MPV Immature Gran % (Auto) Neut % (Auto) Lymph % (Auto) [place] % (Auto) Eos % (Auto) Baso % (Auto) Neut # (Auto) Lymph # (Auto) [place] # (Auto) Eos # (Auto) Baso # (Auto) Immature Gran # (Auto) PT INR POC Sodium Sodium POC Potassium Potassium POC Chloride Chloride Carbon Dioxide POC Total CO2 Anion Gap POC Anion Gap POC BUN BUN Creatinine POC Creatinine Est Cr Clr Drug Dosing eGFR BUN/Creatinine Ratio Glucose POC Glucose (other) Lactate 2.6 H* Calcium POC Ioniz Calcium Devan Phosphorus Magnesium Total Bilirubin Direct Bilirubin AST ALT Alkaline Phosphatase Troponin I High Sens Total Protein Albumin Vitamin B12 Procalcitonin TSH Free T4 Urine Color See Comment Urine Appearance Turbid A Urine pH Not Reportable Ur Specific [place] 1.019 Urine Protein Not Reportable Urine Glucose (UA) Not Reportable Urine Ketones Not Reportable Urine Blood Not Reportable Urine Nitrite Not Reportable Urine Bilirubin Not Reportable Urine Urobilinogen Not Reportable Ur Leukocyte Esterase Not Reportable Urine RBC 11-20 H Urine WBC >50 H Ur Epithelial Cells 6-10 H Urine Bacteria 4+ H Urine Comment Adenovirus (PCR) Not Detected B. pertussis DNA (PCR) Not Detected B.parapertussis DNA PCR Not Detected C. pneumoniae DNA (PCR) Not Detected Coronavirus OC43 (PCR) Not Detected Coronavirus HKU1 (PCR) Not Detected Coronavirus 229E (PCR) Not Detected SARS-CoV-2 (PCR) Not Detected Coronavirus NL63 (PCR) Not Detected Human Metapneumovir PCR Not Detected Influenza Type A (PCR) Not Detected Influenza Type B (PCR) Not Detected M. pneumoniae (PCR) Not Detected Parainfluenza 1 (PCR) Not Detected Parainfluenza 2 (PCR) Not Detected Parainfluenza 3 (PCR) Not Detected Parainfluenza 4 (PCR) Not Detected RSV (PCR) Not Detected Entero/Rhino (PCR) Not Detected 05/16/25 05/16/25 08:04 08:04 WBC 10.26 RBC 3.69 L Hgb 9.5 L POC Hgb Hct 30.8 L POC Hct MCV 83.5 MCH 25.7 MCHC 30.8 L RDW Std Deviation 54.4 H RDW Coeff of Ollie 18.6 H Plt Count 440 H MPV 9.2 L Immature Gran % (Auto) 0.7 Neut % (Auto) 75.6 Lymph % (Auto) 14.5 [place] % (Auto) 8.8 Eos % (Auto) 0.0 Baso % (Auto) 0.4 Neut # (Auto) 7.76 H Lymph # (Auto) 1.49 [place] # (Auto) 0.90 H Eos # (Auto) 0.00 Baso # (Auto) 0.04 Immature Gran # (Auto) 0.07 PT INR POC Sodium Sodium 138 POC Potassium Potassium 4.2 POC Chloride Chloride 108 H Carbon Dioxide 25 POC Total CO2 Anion Gap 5 POC Anion Gap POC BUN BUN 9 Creatinine 0.67 D POC Creatinine Est Cr Clr Drug Dosing 51.8 eGFR 84.02 BUN/Creatinine Ratio 13.4 Glucose 124 H POC Glucose (other) Lactate Calcium 7.1 L POC Ioniz Calcium Devan Phosphorus 3.4 Magnesium 1.7 Total Bilirubin Direct Bilirubin AST ALT Alkaline Phosphatase Troponin I High Sens 14.7 H Total Protein Albumin Vitamin B12 983 H Procalcitonin TSH 12.747 H Cancelled Free T4 1.01 Urine Color Urine Appearance Urine pH Ur Specific [place] Urine Protein Urine Glucose (UA) Urine Ketones Urine Blood Urine Nitrite Urine Bilirubin Urine Urobilinogen Ur Leukocyte Esterase Urine RBC Urine WBC Ur Epithelial Cells Urine Bacteria Urine Comment Adenovirus (PCR) B. pertussis DNA (PCR) B.parapertussis DNA PCR C. pneumoniae DNA (PCR) Coronavirus OC43 (PCR) Coronavirus HKU1 (PCR) Coronavirus 229E (PCR) SARS-CoV-2 (PCR) Coronavirus NL63 (PCR) Human Metapneumovir PCR Influenza Type A (PCR) Influenza Type B (PCR) M. pneumoniae (PCR) Parainfluenza 1 (PCR) Parainfluenza 2 (PCR) Parainfluenza 3 (PCR) Parainfluenza 4 (PCR) RSV (PCR) Entero/Rhino (PCR) . Diagnostic Findings Chest X-Ray 05/16/25 00:59 EXAM: XR chest 1V portable CLINICAL HISTORY: Sepsis TECHNIQUE: An X-ray image of the chest was obtained in the AP projection. COMPARISON: CT angiography of the chest, dated 05/16/2025. FINDINGS: The patient is rotated. Pulmonary Parenchyma: Bilateral reticular shadowing is suggestive of fibrosis. Atelectatic bands are noted in the right middle and lower lung zones. The lungs are clear bilaterally. There is no evidence of consolidation, collapse, or focal opacities. No pulmonary nodules are identified. There is blunting of the right costophrenic angle, which is suggestive of mild pleural effusion. Heart and Mediastinum: The heart size and shape are normal. There is a dilated and unfolded aorta. There is an elevated right hemidiaphragm. Bony Thorax: Degenerative changes are present in the glenohumeral joints. Decreased bone density is noted. Soft Tissues: The soft tissues overlying the chest wall are unremarkable. IMPRESSION: 1. Bilateral reticular shadowing is suggestive of fibrosis, and is stable. 2. Atelectatic bands in the right middle and lower lung zones are stable. 3. Blunting of the right costophrenic angle is suggestive of mild pleural effusion, and is stable. 4. There are no significant interval changes from the previous study. Electronically signed by John Nesbitt 05-16-2025 03:23 AM Chest CTA 05/16/25 01:02 EXAM: CT angio chest PE protocol CLINICAL HISTORY: PE TECHNIQUE: Contiguous axial images were obtained from the neck base through the upper abdomen following intravenous administration of iodinated contrast material. Angiographic images were processed, 3D MIP images were acquired for interpretation. If IV contrast material had not been administered, the likelihood of detecting abnormalities relevant to the patient's condition would have been substantially decreased. Coronal and sagittal 3-D MIPs were likewise performed and indicated to increase the sensitivity of detectin diffuse clinically relevant pathology. CT scan was performed according to ALARA (as low as reasonably achievable). COMPARISON: None. FINDINGS: Mild right pleural effusion with basal subsegmental collapse of right lower lobes are seen. Evidence of intraluminal hypodense filling defect is noted involving right upper lobar artery and right middle lobar artery up to segmental branches- suggestive of pulmonary embolism. Multiple fibroatelectatic bands are noted in both lungs. Ill-defined fibrotic scar is noted involving anterior segment of left upper lobe. The central airways are patent. The heart, aorta, and pulmonary arteries are of normal size and configuration. There are coronary artery and aortic atherosclerotic calcifications. No pericardial effusion is identified. The thyroid shows multiple tiny nodules-advised ultrasound correlation. No mediastinal, hilar, or axillary lymphadenopathy is noted. No suspicious lytic or sclerotic osseous lesions are identified. IMPRESSION: 1. Evidence of intraluminal hypodense filling defect is noted involving right upper lobar artery and right middle lobar artery up to segmental branches- suggestive of pulmonary embolism. 2. Mild right pleural effusion with basal subsegmental collapse of right lower lobes are seen. 3. Multiple fibroatelectatic bands are noted in both lungs. 4. Ill-defined fibrotic scar is noted involving anterior segment of left upper lobe. Electronically signed by Kailash Lopez 05-16-2025 02:[address] 05/16/25 07:31 CT SCAN OF THE PELVIS WITH IV CONTRAST CLINICAL HISTORY: Sacral ulceration. COMPARISON STUDY: No priors TECHNIQUE: CT scan of the pelvis is performed from the pelvic inlet to the proximal femora following the IV administration of 94 cc of Optiray 320. Images are reviewed in the axial, sagittal, and coronal planes. IV contrast was administered without complication. A dose lowering technique was utilized adhering to the principles of ALARA. FINDINGS: The bladder is decompressed around a Salazar catheter and appears thick walled. The bladder contains foci of intraluminal gas as well as excreted IV contrast. The uterus is surgically absent. No adnexal lesion is seen. There is trace free fluid in the cul-de-sac. Imaged portions of the small bowel and colon show no evidence of obstruction. There is no pelvic sidewall or inguinal lymphadenopathy. The iliac arteries are patent noting atherosclerotic plaque and irregularity. There is anasarca of the body wall. There is generalized atrophy of the regional musculature. The skeletal structures are osteopenic. No fracture is identified. Arthritic change is seen in the hips. There is degenerative sclerosis of the sacroiliac joints and pubic symphysis. No lytic or blastic lesion is seen. There is a difficult large decubitus ulceration overlying the lower sacrum with associated dermal thickening and surrounding inflammation. No underlying bony destruction is seen. Question a fistulous tract extending from the decubitus ulceration into the right gluteal soft tissues on axial image #106. No organized fluid collection is seen at this site to suggest abscess. There is also a large ulceration overlying the greater trochanter of the left proximal femur with dermal thickening and inflammation. There is mild erosive change in the greater trochanter deep to this site suggesting osteomyelitis. There is a small pocket of gas and fluid overlying the greater trochanter at the site seen on axial images #115-149. This measures approximately approximately 6 x 3.5 x 1.5 cm and may represent a small abscess. IMPRESSION: 1. There is a large sacral decubitus ulceration with surrounding cellulitis. 2. There is no CT evidence of sacral osteomyelitis. 3. Question a fistulous tract extending from the sacral ulceration into the right gluteal soft tissues. 4. There is also a large decubitus ulceration overlying the greater trochanter of the left proximal femur with surrounding cellulitis. 5. Erosive change in the greater trochanter of the left proximal femur likely represents osteomyelitis. 6. There is a pocket of fluid overlying the greater trochanter of the left proximal femur deep to the ulceration as detailed above which likely represents an abscess. 7. There is anasarca of the body wall and a small volume of pelvic ascites. 8. The bladder is decompressed and appears thick walled. Correlate with clinical findings and urinalysis. ACT 112: Negative or not required by law. Electronically signed by: Jeffrey Mckeon M.D. 05/16/2025 11:[address] 05/16/25 07:57 CT ankle LT w con CLINICAL HISTORY: stage IV wound COMPARISON STUDY: None FINDINGS: There is subcutaneous soft tissue stranding and thickening laterally consistent with cellulitis. No soft tissue abscess or hematoma seen. No fracture or dislocation seen at the left ankle. No evidence of osteomyelitis seen. IMPRESSION: No soft tissue abscess or osteomyelitis seen. ACT 112: Negative or not required by law. Electronically signed by: Mikey Leslie M.D. 05/16/2025 10:[address] 05/16/25 07:[address] WITH CONTRAST CLINICAL HISTORY: Stage IV wound. COMPARISON STUDY: No previous studies for comparison. TECHNIQUE: Axial images of the left femur obtained following intravenous injection of 94 cc of Optiray 320 IV. Sagittal and coronal reformats were viewed. A dose lowering technique was utilized adhering to the principles of ALARA. FINDINGS: Note is made of a deep wound of the lateral left thigh, at the level of the greater trochanter. There is an associated subcutaneous rim-enhancing pocket of fluid and gas which measures 3.5 x 2.4 cm, overlying the greater trochanter. Subcortical lucencies within the greater trochanter of the left femur suggest early osteomyelitis. There is no associated fractures. No additional areas of bony erosion within the left femur are present. There is extensive subcutaneous edema within the left thigh. A small amount of interfascial fluid is present. No additional foci of soft tissue gas within the left thigh are present. A Salazar balloon within the bladder is noted. The bladder is collapsed. A sacral decubitus ulcer is particularly on the pelvis CT which will be reported separately. Incidental note is made of severe left hip osteoarthritis. There are no suspicious osseous lesions IMPRESSION: Deep wound of the lateral left thigh with associated subcutaneous rim enhancing pocket of fluid and gas which extends to the greater trochanter of the left femur. Subtle cortical erosion of the greater trochanter suggestive of early acute osteomyelitis. ACT 112: Negative or not required by law. Electronically signed by: Fidencio Sampson M.D. 05/16/2025 10:[address] 05/16/25 07:58 CT head/brain wo con CLINICAL HISTORY: unresponsive, worse than prior, on heparin. TECHNIQUE: Multiple axial CT images of the head were obtained without contrast. A dose lowering technique was utilized adhering to the principles of ALARA. CT DOSE: 625.8 mGy.cm COMPARISON: 05/16/2025. FINDINGS: Stable mild globus pallidus calcifications, unremarkable in this age group. Stable moderate chronic small vessel ischemic change. No intracranial hemorrhage seen. No mass effect, midline shift, or hydrocephalus. Visualized paranasal sinuses and mastoid air cells are clear. No skull fracture seen. IMPRESSION: No acute findings. ACT 112: Negative or not required by law. The above report was generated using voice recognition software. It may contain grammatical, syntax or spelling errors. Electronically signed by: Mikey Leslie M.D. 05/16/2025 10:17 AM . 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
[2025-05-16] MEDS: COLLAGENASE OINT 30 GM TUBE EXT SCH (14:22)
[2025-05-16] MEDS: D5W AND LACTATED RINGERS 1,000 ML IV SCH (14:22)
--- NOTE | 2025-05-16 15:46 | Advance Care Plan Prog Note ---
Advanced Care Planning Note Date of Discussion May 16, 2025 ACP Discussion Diagnoses requiring ACP discussion: acute osteomyelitis, severe sepsis, segmental PE A [id number] discussion with the son regarding the patient's advanced care planning took place during this hospitalization on the above date. The discussion included the explanation and discussion of advance directives and associated forms/documents, as well as the patient's current code status. We also discussed at length the patient's medical conditions (both acute and chronic), general prognosis, treatment options, and goals of care. The following summarizes the discussion: neonatal nurse practitioner video call used for conversation. Began conversation by introducing ourselves. Patient son was able to verbalize much of what is going on with patient. I discussed that the patient has severe sepsis 2/2 acute osteomyelitis of left hip, right ankle with a large segmental PE, and end stage dementia. Patient is currently unresponsive, showing several signs of a preterminal decline (mottling, cold extremities, minimal responsiveness, diminished radial pulse). Discussed her prognosis is likely on scale of days to weeks, as we cannot fix the numerous areas of acute osteomyelitis, including hip and ankle, without procedures which would likely do more harm than good given she has ECOG 5 and poor nutrition status. Discussed 2 routes forward, one route is to continue current medical interventions with understanding that sepsis will reoccur regardless given osteomyelitis, other option is to focus on quality of life and comfort. Son would like to discuss with rest of family, but would like to take her home and does not want her to suffer. He states she will be more comfortable at home and would not want to her. Hospice discussed at length. Son would like referrals to hospice. Son asked for recommendations. Recommended [facility] and [facility] hospice as options, and son was agreeable to these referrals. We will keep current level of care with no escalation until discharge. DPOA-HC/Surrogate Decision Maker -son Status Resuscitation Status DNR/DNI No Resuscitation Total Time I spent a total of 30 minutes was spent on this discussion, including counseling, answering questions, and completing, if any, pertinent advanced care planning forms/documents.
--- NOTE | 2025-05-16 16:28 | Podiatry Consultation ---
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 I discussed with her son etiology and treatment for her lower extremity concerns. Specifically, these heel ulcerations are significant. We discussed that treatment for acute osteomyelitis that she is dealing with is limited to either IV antibiotics or surgical resection via amputation. Amputation level she would require would be a partial calcanectomy at the least, though if there is more proximal bone infection as well, this level of surgical intervention would be inefficient, ineffective, and put her at risk of surgical complications from anesthesia. There would be no significant benefit to performing the surgery if it was not significantly definitive. Instead, would likely be more beneficial, surgically, for orthopedics or vascular to consider a higher-level amputation. Still, if the hip is osteomyelitic as well, and no surgical intervention would likely be an official, with her ASA classification a 4 Mccabe 5, surgery would not be beneficial unless it would be lifesaving. Instead, she would benefit from more conservative wound treatment, including the use of Santyl for enzymatic debridement and IV antibiotics for systemic treatment of the infection. Wound care has already been consult in and is actively caring for the wounds. This should help keep them clean and prevent them from worsening. We will place an order for Santyl collagenase ointment. We will continue to follow up with her, though she is at significant risk of loss of limb and life at this point regardless of intervention. Patient's son understands and will discuss the options with her family moving forward. Thank you for the consult, we are always happy to help out whenever possible. History of Present Illness Reason for Consultation: Bilateral heel ulceration Attending Physician: Akhil Cordero MD History of Present Illness Patient seen at bedside at lunchtime. She was seen at the same time as the wound care team, with her son present. With her dementia and aphasia, no history was obtained from her directly. The chart was reviewed extensively processed personally. From her son, it seems as though she was receiving care in [place] for these infections and her worsening dementia. It was decided then that she would be best suited transferring back here to the [place] for further treatment. He states that she seems to be at her baseline cognition but that her dementia is worsened. He states that she may say a word or 2 here and there but is mostly nonverbal. She has had these long-standing ulcerations to the hip, back, and heel, now with worsening ulceration to the contralateral heel as well. Allergies Allergy/AdvReac Type Severity Reaction Status Date / Time ibuprofen AdvReac Unknown Verified 05/16/25 09:58 Patient History Social History Smoking Status: Never smoker Hx Alcohol Use: No Hx Substance Use: No Preferred Language: Libyan Communication Ability: Effective Communication Tools: IPad [employer] Required: Yes Beliefs That Will Affect Care: None Current Living Situation: Family and Shelter Other Information That Helps Us Care for You: No Feels Safe at Home: Yes Safety Concerns: Feels Safe At This Time Review of Systems Review of Systems: All systems reviewed & are unremarkable except as noted in HPI & below and Unobtainable due to cognitive status Constitutional: no fever, no chills and no fatigue Eyes: no problem reported Ear, Nose, Mouth, Throat: no problem reported Respiratory: no problem reported Cardiovascular: + edema; no problem reported Gastrointestinal: no nausea, no vomiting and no problem reported Genitourinary: no problem reported Musculoskeletal: no problem reported Integumentary: + skin ulcer, + wounds and + erythema Neurologic: + loss of sensation, + numbness and + pa resthesia; no generalized weakness Psychiatric: no problem reported Physical Exam Physical Exam: Lower extremity focused exam: DP/PT pulses nonpalpable CFT is brisk to the digits. Ulcerations are noted to the bilateral plantar/posterior heel, worse on the Right heel. This right foot ulceration measures 3 cm in diameter and probes directly to bone. The remainder of the wound bed is 50% fibrotic and 50% granular. The central aspect of the wound is the main body of the posterior calcaneus. No wily purulence is appreciated and no severe malodor is noted. Surrounding tissue is erythematous and dry. The left plantar heel is more consistent with deep tissue injury with no significant open lesion currently noted. There is advanced contracture of the bilateral lower extremity at the hip and knee with significant pressure underlying the heels. Constitutional: WD/WN, vitals as above + ill appearing and + obese Eyes: PERRL, conjunctivae normal, anicteric sclerae ENMT: external ear and nose normal, oropharynx normal Neck: trachea midline, no thyromegaly normal visual inspection Respiratory: normal respiratory effort; no respiratory distress Cardiovascular: Rate/Rhythm: regular rate and regular rhythm Chest (Breasts): Chest: normal inspection of chest Gastrointestinal (Abdomen): Inspection/Auscultation: abdomen normal to inspection Percussion/Palpation: + abdomen tender and abdomen soft Musculoskeletal: no cyanosis or clubbing, extremities motor strength 5/5 Head/Neck/Chest: normocephalic and head atraumatic Extremities: extremities normal to inspection Neurologic: awake; no focal motor deficits Psychiatric: A+Ox3, euthymic affect Results & Data Vital Signs (Past 12 Hours) Vital Signs Temp Pulse Pulse Resp BP BP Pulse Ox 05/16/25 15:57 36.5 C 78 18 137/75 92 05/16/25 14:54 74 05/16/25 12:52 80 8 L 124/95 95 05/16/25 11:41 94 H 05/16/25 11:40 94 H 05/16/25 07:59 36.6 C 89 13 118/76 94 05/16/25 07:30 05/16/25 06:57 05/16/25 06:04 36.6 C 92 H 22 125/76 94 05/16/25 05:24 36.5 C 96 H 20 95 05/16/25 05:20 134/79 05/16/25 05:12 115/69 05/16/25 05:12 115/69 05/16/25 05:06 36.5 C 92 H 22 93 05/16/25 05:01 116/92 05/16/25 04:57 36.4 C L 99 H 19 94 05/16/25 04:52 98 H 05/16/25 04:50 123/103 H 05/16/25 04:50 123/103 H 05/16/25 04:40 88/34 L 05/16/25 04:40 88/34 L 05/16/25 04:36 36.7 C 102 H 22 94 05/16/25 04:30 106/66 Pulse Ox O2 Del Method O2 Del Method 05/16/25 15:57 Room Air 05/16/25 14:54 05/16/25 12:52 Room Air 05/16/25 11:41 05/16/25 11:40 05/16/25 07:59 Room Air 05/16/25 07:30 Room Air 05/16/25 06:57 96 Room Air 05/16/25 06:04 Room Air 05/16/25 05:24 05/16/25 05:20 05/16/25 05:12 05/16/25 05:12 05/16/25 05:06 05/16/25 05:01 05/16/25 04:57 05/16/25 04:52 05/16/25 04:50 05/16/25 04:50 05/16/25 04:40 05/16/25 04:40 05/16/25 04:36 05/16/25 04:30
[2025-05-16] MEDS: PIPERACILLIN/TAZOBACTAM 4.5 GM/100 ML BAG IV SCH (17:02)
[2025-05-16 22:07] LABS: ANTI-Xa, UFH(UnfractionatedHep 1.03 IU/ml (0.3-0.7)
[2025-05-17 06:31] LABS: Hematocrit (blood only) 27.9 % (37.0-47.0); Hemoglobin 8.8 g/dl (12.0-16.0); Mean Corpuscular Hemoglobin 25.5 pg (25.0-34.0); Mean Corpuscular Volume 80.9 fL (80.0-100.0); Platelet Count 465 K/uL (130-400); RDW Standard Deviation 54.2 fL (36.4-46.3); Red Blood Count 3.45 M/uL (4.20-5.40); White Blood Count 6.43 K/ul (4.8-10.8)
[2025-05-17 07:00] LABS: ANTI-Xa, UFH(UnfractionatedHep 0.36 IU/ml (0.3-0.7)
[2025-05-17 07:16] LABS: Alanine Aminotransferase 12.0 U/L (7-52); Albumin Globulin Ratio 0.6 (0.9-2); Albumin Level 1.8 gm/dl (3.4-5.0); Alkaline Phosphatase 87.0 U/L (34-104); Anion Gap 6.0 (3-11); Bilirubin,Total 0.3 mg/dl (0.2-1.0); Blood Urea Nitrogen 5.0 mg/dl (6-23); Calcium 7.3 mg/dl (8.6-10.3); Carbon Dioxide 25.0 mmol/L (21-32); Chloride 107.0 mmol/L (98-107); Creatinine Clr Calc Pharmacy 78.9 ml/min; Globulin 2.8 gm/dl (2.5-4.0); Glucose 99.0 mg/dl (70-99(Fasting)); Magnesium 1.5 mg/dl (1.7-2.4); Potassium 3.5 mmol/L (3.5-5.1); Sodium 138.0 mmol/L (136-145); Total Protein 4.6 gm/dl (6.0-8.3)
[2025-05-17] MEDS: FOLIC ACID 1 MG in SYRINGE 9.8 ML IV SCH (07:40)
[2025-05-17] MEDS: THIAMINE HCL 100 MG TAB PO SCH (07:41)
[2025-05-17 07:51] VITALS: BP 114/56; O2SAT 96
[2025-05-17] MEDS ORDERED: ONDANSETRON INJ 2 MG/ML 2 ML VIAL IV PRN (12:05)
[2025-05-17] MEDS ORDERED: HALOPERIDOL ORAL SOLN 2 MG/ML PO PRN (12:05)
--- NOTE | 2025-05-17 12:13 | Hospitalist Progress Note ---
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 The patient is significantly deconditioned, frail and weak. Patient has continued to decline. family had extensive conversation with care team yesterday and pursuing hospice. Continue with comfort care Continue antibiotics at this point, they will provide some comfort and keeping infection somewhat at day. Would anticipate discontinuing antibiotics at the time of discharge Communication with the patient's son at the bedside. He now reports that the family really is unable to take care of of the patient at home even with the assistance of hospice. I did discuss with him about [facility] facility and layering hospice care there he was agreeable to this. Communication with case management, pursue [facility] facility for hospice care Morphine for pain control, other comfort orders placed. [facility] Admission and Anticipated Discharge Date Admission Date: May 16, 2025 Subjective Patient appears comfortable. Nurses report that she is not complaining of anything significant during her general long term care. Son is at bedside. No acute events overnight. Physical Exam Physical Exam: Constitutional: Awake, frail, position, chronically ill HEENT: Mucous membranes dry Lungs: Decreased breath sounds CV: S1-S2, regular Abdomen: Soft, nontender, nondistended Extremities: No significant edema Neuro: Globally weak, nonverbal, will grasp fingers Psych: Frail, flat affect Results & Data Results & Data Vital Signs (Past 12 Hours) Vital Signs Temp Pulse Pulse Resp BP Pulse Ox O2 Del Method 05/17/25 09:58 Room Air 05/17/25 09:57 100 H 05/17/25 09:01 37.2 C 05/17/25 07:00 38.3 C H 88 18 114/56 L 96 Room Air 05/17/25 00:10 98 H 18 121/68 93 Room Air Diagnostic Findings Reviewed imaging, laboratory and diagnostic studies. Pertinent findings as below. WBC 6.4 Hemoglobin 8.8 Magnesium 1.5 Phosphorus 2.1 Creatinine 0.44
--- NOTE | 2025-05-17 13:38 | Podiatry Progress Note ---
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 - With moving towards hospice and palliative care, we will sign off for now with no surgical intervention planned. - Would recommend continued Santyl collagenase to the right heel and indefinite use of heel offloading boots. - She may benefit from pillows underneath the more proximal calf to help offload the heels and prevent worsening ulceration. - Please reconsult as necessary if her condition changes or the family does want to pursue more aggressive treatment. - Thanks for allowing us to participate in this patient's care. Admission and Anticipated Discharge Date Admission Date: May 16, 2025 Subjective Patient seen at bedside. She is resting and not alert. He is not arousable at this point in time. Chart was reviewed extensively. Review of Systems Review of Systems: Unobtainable due to cognitive status and Unobtainable due to reduced consciousness Physical Exam Physical Exam: Lower extremity focused exam: DP/PT pulses nonpalpable CFT is brisk to the digits. Ulcerations are noted to the bilateral plantar/posterior heel, worse on the Right heel. This right foot ulceration measures 3 cm in diameter and probes directly to bone. The remainder of the wound bed is 50% fibrotic and 50% granular. The central aspect of the wound is the main body of the posterior calcaneus. No wily purulence is appreciated and no severe malodor is noted. Surrounding tissue is erythematous and dry. The left plantar heel is more consistent with deep tissue injury with no significant open lesion currently noted. There is advanced contracture of the bilateral lower extremity at the hip and knee with significant pressure underlying the heels. Results & Data Results & Data Vital Signs (Past 12 Hours) Vital Signs Temp Pulse Pulse Resp BP Pulse Ox O2 Del Method 05/17/25 09:58 Room Air 05/17/25 09:57 100 H 05/17/25 09:01 37.2 C 05/17/25 07:00 38.3 C H 88 18 114/56 L 96 Room Air
[2025-05-17] MEDS: VANCOMYCIN HCL / NSS 1,000 MG/270 ML BAG IV SCH (14:23)
[2025-05-17 15:32] VITALS: RESP 22; TEMP 97.7
--- NOTE | 2025-05-18 07:49 | Hospitalist Progress Note ---
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 Family aware pursuing comfort care at snf facility Continue current management, discontinue antibiotics in the setting of comfort care and multidrug resistant species. Believe that ongoing treatment with antibiotics would not provide any additional comfort or impact her overall prognosis. Admission and Anticipated Discharge Date Admission Date: May 16, 2025 Subjective Patient extremely comfortable, nursing reports good comfort. No acute issues Physical Exam Physical Exam: Constitutional: Asleep, minimally responsive, comfortable HEENT: Mucous membranes dry Lungs: Decreased CV: Regular Abdomen: Soft, Extremities: No significant edema Neuro: Minimally responsive, weak Results & Data Results & Data Vital Signs (Past 12 Hours) Vital Signs O2 Del Method 05/17/25 22:00 Room Air Diagnostic Findings Reviewed imaging, laboratory and diagnostic studies. Pertinent findings as below. Reviewed microbiology from her multiple wounds . Growing numerous species including Proteus, Morganella, E. coli, Pseudomonas several are multidrug- resistant. Resistant to antibiotics currently on.
[2025-05-19] MEDS ORDERED: VANCOMYCIN LEVEL SCH (10:00)
--- NOTE | 2025-05-19 12:12 | Hospitalist Progress Note ---
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 Patient's wounds and osteomyelitis advanced to the point and consideration of other comorbidities that family has chosen to move forward with comfort/hospice care. Continue comfort care Case management continue to work with family to pursue possible placement for the patient to continue her comfort care Bedside conversation with the patient's son. Did confirm that her wounds and subsequent osteomyelitis significantly contributed to her rapid decline and ultimately will lead to her or complication of these wounds. Admission and Anticipated Discharge Date Admission Date: May 16, 2025 Subjective Patient is comfortable. Nursing reports that did not need any as needed medications for comfort. Son at the bedside he reports that he does get his mother to eat a little bit of bites when he is there. Physical Exam Physical Exam: Constitutional: Sleeping, minimally responsive HEENT: Mucous membranes dry Lungs: No respiratory distress CV: regular Extremities: No significant edema Neuro: Minimal responsive Results & Data Results & Data Vital Signs (Past 12 Hours) Vital Signs O2 Del Method 05/19/25 07:40 Room Air
--- NOTE | 2025-05-20 08:49 | Electrocardiogram Report ---
Test Reason : Blood Pressure : */* mmHG Vent. Rate : 144 BPM Atrial Rate : 150 BPM P-R Int : 168 ms QRS Dur : 78 ms QT Int : 282 ms P-R-T Axes : -8 -13 -19 degrees QTcB Int : 436 ms Sinus tachycardia Low voltage QRS Possible Inferior infarct , age undetermined Possible Anterolateral infarct , age undetermined Abnormal ECG No previous ECGs available Confirmed by Dorian Ledezma ([id number]) on 05/20/2025 8:49:20 AM Referred By: REFERRED SELF Confirmed By: Dorian Ledezma
--- NOTE | 2025-05-20 12:14 | Hospitalist Progress Note ---
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 Nursing reports that she is comfortable and has not needed as needed meds Physical Exam Physical Exam: Constitutional: Asleep, frail, cachectic, resting comfortably HEENT: Dry Lungs: No respiratory distress CV: Regular Abdomen: Soft, Extremities: No significant edema Neuro: Minimally responsive
[2025-05-20] MEDS: MoRPHine SULFATE 10 MG/0.5 ML UDP PO PRN (12:38)
--- NOTE | 2025-05-21 11:36 | Hospitalist Progress Note ---
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 Anticipate life expectancy measured in days. Nursing reported they had a conversation with family about their attempts at feeding her. Family now understands that attempting to feed her may cause her more harm than benefit. Case management continue to work with family to find placement for hospice care Admission and Anticipated Discharge Date Admission Date: May 16, 2025 Subjective No acute issues overnight. Nurses report that the patient is comfortable does not need breakthrough medications for discomfort. Physical Exam Physical Exam: Constitutional: Asleep, comfortable appearing Lungs: No respiratory distress CV: Regular Neuro: Minimally responsive
[2025-05-21] MEDS: COLLAGENASE OINT 30 GM TUBE EXT SCH (15:47)
[2025-05-22] MEDS: MoRPHine SULFATE 2 MG/ML CARP IV PRN (09:06)
--- NOTE | 2025-05-22 10:35 | Hospitalist Progress Note ---
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 (6) Osteomyelitis of foot, right, acute: (7) Other specified peripheral vascular diseases: (8) Protein calorie malnutrition: (9) Acute metabolic encephalopathy: Plan Continue comfort care Ongoing conversations with family about placement options with case management Extended family at bedside Attempted to contact son via phone no answer Admission and Anticipated Discharge Date Admission Date: May 16, 2025 Subjective No acute issues overnight Physical Exam Physical Exam: Constitutional: Asleep, minimally responsive HEENT: Dry Lungs: No respiratory distress CV: Regular Abdomen: Soft, Extremities: No significant edema Neuro: Withdraws to pain
--- NOTE | 2025-05-23 13:04 | Hospitalist Progress Note ---
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 Family still did not have the means to be able to care for her at home even with assistance of hospice. Continue to work with family to find possible placement Life expectancy for the patient now measured in days, anticipate patient may even pass here in the hospital Admission and Anticipated Discharge Date Admission Date: May 16, 2025 Subjective No acute issues overnight. Patient appears comfortable. Physical Exam Physical Exam: Constitutional: Sleeping HEENT: Dry Lungs: No respiratory distress CV: Regular Abdomen: Soft, Neuro: Minimally responsive to stimulation Results & Data Results & Data Vital Signs (Past 12 Hours) Vital Signs O2 Del Method 05/23/25 12:06 Room Air
--- NOTE | 2025-05-24 15:12 | Hospitalist Progress Note ---
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: (6) Ulcer of sacral region: Plan: Right medial foot pressure ulcer, unstageable POA Pressure ulcer left lateral foot POA Pressure ulcer left 5th toe POA Pressure ulcer of right heel, stage 4 POA Bilateral buttock deep tissue injury POA Pressure ulcer of left hip, stage 4 POA Pressure ulcer of left heel POA Medial sacral pressure ulcer Stage IV POA (7) Osteomyelitis of foot, right, acute: (8) Other specified peripheral vascular diseases: (9) Protein calorie malnutrition: (10) Acute metabolic encephalopathy: Plan Per previous provider Continue with comfort care Communication with case management, at this time have not found a facility that family is able to afford financially are comfortable with placing the patient. Family still did not have the means to be able to care for her at home even with assistance of hospice. Continue to work with family to find possible placement 05/24 CM involved and more referrals to different facilities sent Admission and Anticipated Discharge Date Admission Date: May 16, 2025 Subjective Pt seen in follow up Had a prolonged hospital stay in [facility] - brought in here by her family Pt has been on comfort care status She is lying in bed in NAD, sleeping, does not respond much to my voice or during physical exam She appears comfortable Initially plan for home hospice - now CM involved in DC plan - referrals to different facilities sent Review of Systems Review of Systems: All systems reviewed & are unremarkable except as noted in Subjective Physical Exam Physical Exam: Constitutional: WD/WN elderly F in NAD, Sleeping Lungs: No respiratory distress CV: Regular Abdomen: Soft, Neuro: Minimally responsive to voice or touch Results & Data Results & Data Vital Signs (Past 12 Hours) Vital Signs O2 Del Method 05/24/25 07:35 Room Air Medications Administered Current Inpatient Medications Collagenase (Collagenase Oint 30 Gm Tube) 1 appln EXT PRN ANALILIA Stop: 06/20/25 14:59 Last Admin: 05/24/25 14:32 Dose: 1 appln Haloperidol (Haloperidol Oral Soln 2 Mg/Ml) 0.5 mg PO Q4H PRN PRN Reason: Anxiety/Agitation Stop: 06/16/25 12:04 Lorazepam (Lorazepam 2 Mg/1 Ml Vial) 0.5 mg IV Q4H PRN PRN Reason: Anxiety/Agitation Stop: 06/16/25 12:04 Morphine Sulfate (Morphine Sulfate 10 Mg/0.5 Ml Udp) 5 mg PO Q3H PRN PRN Reason: Pain or Respiratory Distress Stop: 05/31/25 12:04 Last Admin: 05/21/25 15:09 Dose: 5 mg Morphine Sulfate (Morphine Sulfate 2 Mg/Ml Carp) 2 mg IV Q4H PRN PRN Reason: Pain or Respiratory Distress Stop: 05/31/25 12:04 Last Admin: 05/24/25 14:29 Dose: 2 mg Ondansetron HCl (Ondansetron Inj 2 Mg/Ml 2 Ml Vial) 4 mg IV Q4H PRN PRN Reason: Nausea &/or Vomiting Stop: 06/16/25 12:04
--- NOTE | 2025-05-25 15:21 | Hospitalist Progress Note ---
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: (6) Ulcer of sacral region: Plan: Right medial foot pressure ulcer, unstageable POA Pressure ulcer left lateral foot POA Pressure ulcer left 5th toe POA Pressure ulcer of right heel, stage 4 POA Bilateral buttock deep tissue injury POA Pressure ulcer of left hip, stage 4 POA Pressure ulcer of left heel POA Medial sacral pressure ulcer Stage IV POA (7) Osteomyelitis of foot, right, acute: (8) Other specified peripheral vascular diseases: (9) Protein calorie malnutrition: (10) Acute metabolic encephalopathy: Plan Per previous provider Continue with comfort care Communication with case management, at this time have not found a facility that family is able to afford financially are comfortable with placing the patient. Family still did not have the means to be able to care for her at home even with assistance of hospice. Continue to work with family to find possible placement 05/24 CM involved and more referrals to different facilities sent 05/25 Family now plans to take pt home w/ hospice tmrw Admission and Anticipated Discharge Date Admission Date: May 16, 2025 Subjective Pt seen in follow up Had a prolonged hospital stay in [facility] - brought in here by her family Pt has been on comfort care status She is lying in bed in NAD, sleeping, does not respond much to voice or touch, even when family tries to wake her She appears comfortable Discussed w/ family and CM - plan to DC pt with home hospice tomorrow Review of Systems Review of Systems: Unobtainable due to cognitive status Physical Exam Physical Exam: Constitutional: WD/WN elderly F in NAD, Sleeping Lungs: No respiratory distress CV: Regular Abdomen: Soft, Neuro: Minimally responsive to voice or touch Results & Data Results & Data Medications Administered Current Inpatient Medications Collagenase (Collagenase Oint 30 Gm Tube) 1 appln EXT PRN ANALILIA Stop: 06/20/25 14:59 Last Admin: 05/25/25 15:45 Dose: Not Given Haloperidol (Haloperidol Oral Soln 2 Mg/Ml) 0.5 mg PO Q4H PRN PRN Reason: Anxiety/Agitation Stop: 06/16/25 12:04 Lorazepam (Lorazepam 2 Mg/1 Ml Vial) 0.5 mg IV Q4H PRN PRN Reason: Anxiety/Agitation Stop: 06/16/25 12:04 Morphine Sulfate (Morphine Sulfate 10 Mg/0.5 Ml Udp) 5 mg PO Q3H PRN PRN Reason: Pain or Respiratory Distress Stop: 05/31/25 12:04 Last Admin: 05/21/25 15:09 Dose: 5 mg Morphine Sulfate (Morphine Sulfate 2 Mg/Ml Carp) 2 mg IV Q4H PRN PRN Reason: Pain or Respiratory Distress Stop: 05/31/25 12:04 Last Admin: 05/25/25 17:26 Dose: 2 mg Ondansetron HCl (Ondansetron Inj 2 Mg/Ml 2 Ml Vial) 4 mg IV Q4H PRN PRN Reason: Nausea &/or Vomiting Stop: 06/16/25 12:04
--- NOTE | 2025-05-26 12:18 | Discharge Summary ---
Date of Service May 26, 2025 Admission HPI Per Admitting Provider 89-year-old female with past medical history significant for hypertension, hyperlipidemia and no longer on medication, history of dementia and agitation was brought in by son from [facility] today and found to be in severe sepsis. As per son they went to [place] last year to visit but the patient got sick and got admitted to the hospital. She was too weak to bring her back. From the hospital she went to longterm. Seems as per son she was in and out of the hospitals because of the infections. As per son she was treated for wound infections and completed antibiotic course about a week ago. And a week prior to that she completed antibiotic course for UTI. As per son she was on lisinopril 5 mg daily prior to going to the [place] but in [place] she is getting a different medication for her blood pressure. And also she was getting medication for dementia and she was getting medication for agitation to help her calm down and sleep in the night. Patient developed deep ulcers in the right ankle, left thigh and sacral region and son found out about this deep wounds about a week ago and then he decided to bring her back to the [facility]. He was told to take the patient to hospital as soon they come back to [facility]. When she came here she was tachycardic and hypotensive. With the fluid bolus and antibiotics her vitals improved currently. As per son she can speak few Sami words. But for last 2 weeks she is not speaking much. Sometimes she remembers her name and sometimes she remembers her son's name. She is nonambulatory. And last couple of weeks she was spoonfed blended diet as per son. As per son no nausea or vomiting. She was having some diarrhea lately. Son thinks patient might be in pain but because of her dementia she is not registering the pain. Currently patient is not talking. Past medical history as mentioned above Past surgical history hysterectomy as per son. Social history. No smoking. No alcohol use. Family history noncontributory Admission Exam Per Admitting Provider General- Not in acute distress. Head- atraumatic Eyes- PERRL. Lungs- clear to auscultation no wheezing or crackles Heart- regular rhythm; Tachycardia no murmur, no gallop. Abdomen- normal bowel sounds, soft, nontender, no distension. Extremities- no pretibial edema, no erythema seen. Neuro- staring, not speaking, PERRL,not obeying commands. Skin- stage 4 ulcers in sacral region , left thigh and right ankle region Principal Diagnosis Osteomyelitis Multiple pressure ulcers UTI Acute PE Failure to thrive Comfort care status Discharge Exam Constitutional: WD/WN elderly F in NAD, Sleeping Lungs: No respiratory distress CV: Regular Abdomen: Soft Neuro: Minimally responsive to voice or touch Discharge Data Allergies Allergy/AdvReac Type Severity Reaction Status Date / Time ibuprofen AdvReac Unknown Verified 05/16/25 09:58 Consultations 05/16/25 03:02 ED Decision to Admit Stat 05/16/25 11:11 Consult Orthopedic Surgery Routine 05/16/25 12:15 Consult Podiatry Routine Ordered Studies 05/16/25 01:02 CT Brain [CT head/brain wo con] Stat FINDINGS: Stable mild globus pallidus calcifications, unremarkable in this age group. Stable moderate chronic small vessel ischemic change. No intracranial hemorrhage seen. No mass effect, midline shift, or hydrocephalus. Visualized paranasal sinuses and mastoid air cells are clear. No skull fracture seen. IMPRESSION: No acute findings. CT angio chest PE protocol Stat FINDINGS: Mild right pleural effusion with basal subsegmental collapse of right lower lobes are seen. Evidence of intraluminal hypodense filling defect is noted involving right upper lobar artery and right middle lobar artery up to segmental branches- suggestive of pulmonary embolism. Multiple fibroatelectatic bands are noted in both lungs. Ill-defined fibrotic scar is noted involving anterior segment of left upper lobe. The central airways are patent. The heart, aorta, and pulmonary arteries are of normal size and configuration. There are coronary artery and aortic atherosclerotic calcifications. No pericardial effusion is identified. The thyroid shows multiple tiny nodules-advised ultrasound correlation. No mediastinal, hilar, or axillary lymphadenopathy is noted. No suspicious lytic or sclerotic osseous lesions are identified. IMPRESSION: 1. Evidence of intraluminal hypodense filling defect is noted involving right upper lobar artery and right middle lobar artery up to segmental branches- suggestive of pulmonary embolism. 2. Mild right pleural effusion with basal subsegmental collapse of right lower lobes are seen. 3. Multiple fibroatelectatic bands are noted in both lungs. 4. Ill-defined fibrotic scar is noted involving anterior segment of left upper lobe. 05/16/25 07:31 CT pelvis w/IV con only Urgent FINDINGS: The bladder is decompressed around a Salazar catheter and appears thick walled. The bladder contains foci of intraluminal gas as well as excreted IV contrast. The uterus is surgically absent. No adnexal lesion is seen. There is trace free fluid in the cul-de-sac. Imaged portions of the small bowel and colon show no evidence of obstruction. There is no pelvic sidewall or inguinal lymphadenopathy. The iliac arteries are patent noting atherosclerotic plaque and irregularity. There is anasarca of the body wall. There is generalized atrophy of the regional musculature. The skeletal structures are osteopenic. No fracture is identified. Arthritic change is seen in the hips. There is degenerative sclerosis of the sacroiliac joints and pubic symphysis. No lytic or blastic lesion is seen. There is a difficult large decubitus ulceration overlying the lower sacrum with associated dermal thickening and surrounding inflammation. No underlying bony destruction is seen. Question a fistulous tract extending from the decubitus ulceration into the right gluteal soft tissues on axial image #106. No organized fluid collection is seen at this site to suggest abscess. There is also a large ulceration overlying the greater trochanter of the left proximal femur with dermal thickening and inflammation. There is mild erosive change in the greater trochanter deep to this site suggesting osteomyelitis. There is a small pocket of gas and fluid overlying the greater trochanter at the site seen on axial images #[id number]. This measures approximately approximately 6 x 3.5 x 1.5 cm and may represent a small abscess. IMPRESSION: 1. There is a large sacral decubitus ulceration with surrounding cellulitis. 2. There is no CT evidence of sacral osteomyelitis. 3. Question a fistulous tract extending from the sacral ulceration into the right gluteal soft tissues. 4. There is also a large decubitus ulceration overlying the greater trochanter of the left proximal femur with surrounding cellulitis. 5. Erosive change in the greater trochanter of the left proximal femur likely represents osteomyelitis. 6. There is a pocket of fluid overlying the greater trochanter of the left proximal femur deep to the ulceration as detailed above which likely represents an abscess. 7. There is anasarca of the body wall and a small volume of pelvic ascites. 8. The bladder is decompressed and appears thick walled. Correlate with clinical findings and urinalysis. 05/16/25 07:57 CT ankle LT w con Urgent FINDINGS: There is subcutaneous soft tissue stranding and thickening laterally consistent with cellulitis. No soft tissue abscess or hematoma seen. No fracture or dislocation seen at the left ankle. No evidence of osteomyelitis seen. IMPRESSION: No soft tissue abscess or osteomyelitis seen. CT leg [CT femur LT w con] Urgent FINDINGS: Note is made of a deep wound of the lateral left thigh, at the level of the greater trochanter. There is an associated subcutaneous rim-enhancing pocket of fluid and gas which measures 3.5 x 2.4 cm, overlying the greater trochanter. Subcortical lucencies within the greater trochanter of the left femur suggest early osteomyelitis. There is no associated fractures. No additio nal areas of bony erosion within the left femur are present. There is extensive subcutaneous edema within the left thigh. A small amount of interfascial fluid is present. No additional foci of soft tissue gas within the left thigh are present. A Salazar balloon within the bladder is noted. The bladder is collapsed. A sacral decubitus ulcer is particularly on the pelvis CT which will be reported separately. Incidental note is made of severe left hip osteoarthritis. There are no suspicious osseous lesions IMPRESSION: Deep wound of the lateral left thigh with associated subcutaneous rim enhancing pocket of fluid and gas which extends to the greater trochanter of the left femur. Subtle cortical erosion of the greater trochanter suggestive of early acute osteomyelitis. 05/16/25 07:58 CT head/brain wo con Urgent FINDINGS: Stable mild globus pallidus calcifications, unremarkable in this age group. Stable moderate chronic small vessel ischemic change. No intracranial hemorrhage seen. No mass effect, midline shift, or hydrocephalus. Visualized paranasal sinuses and mastoid air cells are clear. No skull fracture seen. IMPRESSION: No acute findings. 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 Pt presented to the hospital from [facility]. Reportedly she had a prolonged hospital stay there. She was here initially treated for sepsis, osteomyelitis, Acute Pulmonary embolism, also having multiple pressure ulcers. G oals of care conversation was held and it was decided pt would be on comfort care status. Pt is to be discharged home with her family with hospice. Total Time Total Time Spent Total Time Spent (In Minutes): 20 Discharge Plan Discharge Items Patient Disposition: Hospice - Home Reason For Visit: SEVERE SEPSIS, WOUNDS, UTI, PE Discharge Diagnosis: Osteomyelitis Multiple pressure ulcers UTI Acute PE Failure to thrive Comfort care status Condition on Discharge: Fair Activity: Per Instructions section Non-emergency contact: Primary Care Provider and Specialist Call non-emergency contact if: you have any medication questions and your symptoms worsen Follow-up/Referrals: PCP,NO [Primary Care Provider] - Diet: Regular Addtl Attending Provider Instructions: Patient to be discharged home with hospice. Pending Studies at Discharge: No Stand-Alone Forms: [facility] Medications and DC Order Discharge Orders: Discharge Order (Routine); Ordered 05/26/25 Ordered By: Raul Martinez Admission Data Admit Date/Time: 05/16/25 04:01 Attending Provider: Raul Martinez Admit Provider: Clifton Almeida Primary Care Provider: PCP,NO Other Providers: [facility]; Clifton Almeida; Diego Oliver; Frank Simms; [place],[facility]; [facility],; [facility]im Cantor at [place]; Jordan Anne,[facility]; [facility]
[2025-05-26 14:28] VITALS: PULSE 88
== END 2025-05-26 15:31 | disposition hospice, home (50) | DRG 871 ==
LOC: ED 00:21 → 2E 04:01 → SUATTDRO 04:01 → 2E 06:04 → 3E 05-17 17:32